=== PATIENT | female | born 1940 | race Caucasian/White ===

== ENCOUNTER 2016-12-12 13:48 | Inpatient (IN) | payer MEDICARE, OTHER ==
[~2016-12-12] VITALS: Ht 170.2 cm; Wt 67.1 kg
[2016-12-12] VITALS (10 sets, daily range): BP systolic 90–109; BP diastolic 44–68; PULSE 61–66; RESP 16–25; O2SAT 96–99
[2016-12-12] MEDS ORDERED: 0.9% Sodium Chloride 1,000 ML ONE ×2 (15:09→18:36)
[2016-12-12] MEDS ORDERED: 0.9% Sodium Chloride 1,000 ML IV SCH (15:22)
[2016-12-12] MEDS ORDERED: Polyethylene Glycol (PEG) 17 Gm Powder PO PRN (15:25)
[2016-12-12] MEDS ORDERED: Ondansetron 2 mg/mL 2 mL Inj IVPUSH PRN ×2 (15:25→20:40)
[2016-12-12] MEDS ORDERED: Alum-Mag Hydrox-Simeth 30 mL Suspension PO PRN (15:25)
[2016-12-12] MEDS ORDERED: Senna-Docusate 8.6-50 mg Tablet PO PRN (15:25)
[2016-12-12] MEDS ORDERED: Heparin 5,000 Unit/mL Inj IVPUSH PRN (15:25)
[2016-12-12] MEDS ORDERED: Heparin 25K Unit/500mL 0.45 NS 25,000 UNIT in IV Premix 1 EACH IV SCH (15:25)
--- NOTE | 2016-12-12 16:11 | PCM.HPMED ---
Subjective Date of Service Dec 12, 2016 Primary Provider: Admitting Physician: Harvinder Paredes MD Primary Care Physician: Michelle Guerra Attending Physician: Harvinder Paredes MD Chief Complaint: "chest pain" History of Present Illness: Ms. Nia Sethi is a 76 year old woman with history of hyperlipidemia and hiatal hernia who presents today as a transfer from [facility] for chest pain. Her dull, intermittent, chest pain started yesterday and worsened in the afternoon, which prompted her to go to the emergency department for evaluation. She initially thought it was heartburn but anti-acids did not provide relief. She could not lay down secondary to discomfort. Originally, the pain was epigastric but then started radiating from the center of her chest into her left upper arm, clavicle, jaw, and shoulder blade. It gets worse with deep breaths. It was relieved with Tylenol but not morphine. She has associated dyspnea on exertion, nausea, vomiting, diaphoresis, dizziness, and headache. She does not have fever, cough, rhinorrhea, diarrhea, constipation, leg pain, or vision changes. Her grandfather had a heart attack in his 60s. At [facility], they admitted her overnight to trend troponin, CK-MB, and EKG. She had persistent chest discomfort overnight. Her EKG around 6:30 AM showed new T wave inversion with less than [address] depression in leads 1, aVL, and also T-wave inversion in V2. There was also less than [address] elevation relative to the VA segment in inferior leads with upright T waves, but no ST elevation relative to TP segment. Her third set of cardiac enzymes at 9 AM showed troponin 1.9 and CK 341 with CK MB relative index 12.9 compared to prior troponin was 0.062 and CK was 60. The EKG at 10:30 AM showed normalization of previous T-wave inversions and ST depressions with minimal ST elevation in lead 3 relative to VA segment, and inferior Q waves. She was given a heparin bolus and started on a heparin drip. She was given a loading dose of clopidogrel and aspirin. Nitroglycerin paste was applied with some relief. Her blood pressure dropped to mid 90s systolic around noon. She was given a 500 ml normal saline bolus and started on NS at 50 ml/hour. Her blood pressure increased to 100s systolic. She was then transferred here. Review of Systems: A comprehensive review of systems was conducted with the patient and found to be negative except as above in the History of Present Illness. Allergies Coded Allergies: erythromycin base (Verified Allergy, Intermediate, Rash, 12/12/16) aminosalicylic acid (Verified Allergy, Unknown, 12/12/16) isoniazid (Verified Allergy, Unknown, 12/12/16) sulfamethoxazole (Verified Allergy, Unknown, 12/12/16) tetracycline (Verified Allergy, Unknown, Rash, 12/12/16) trimethoprim (Verified Allergy, Unknown, 12/12/16) Home Medications Fish oil 1,000 mg PO daily Vitamin D 1,000 unit PO daily Simvastatin 20 mg PO at bedtime Cyclosporine 1 drop ophth Estradiol 0.5 mg PO once daily Calcium acetate 667 mg PO once daily Multivitamin PO once daily PMH Hyperlipidemia Intermittent atrial fibrillation Esophageal reflux with hiatal hernia Erosive gastropathy with chronic inflammation on EGD March 2008, last EGD in August 2016 normal Irritable bowel syndrome with constipation Hyperlipidemia Chronic sinusitis Lumbar herniated disc Postural vertigo Childhood tuberculosis Fibromyalgia Depression Surgical History Right ovary removal 1983 Hysterectomy 1990 Cholecystectomy 1999 Sinus surgery 1999 Family History Mother from lymphoma Father had CVA and CAD Social History Hx Alcohol Use: Yes (1-2 glasses of wine/week) Hx Substance Use: No Hx Tobacco Use: No Smoking Status: Never Smoker Living Arrangement: with Family Exam Vital Signs Vital Sign - Last Date Time Temp Pulse Resp B/P Pulse Ox O2 Delivery O2 Flow Rate FiO2 12/12/16 15:08 63 12/12/16 15:02 36.5 16 109/68 97 Room Air Exam General: Mild distress, diaphoretic, well-developed, well-nourished, appropriately interactive HEENT: Normocephalic, atraumatic. External ears without defect. Pupils equal, round, and reactive to light and accommodation. Anicteric sclerae, moist conjunctivae, and no lid lag. Oropharynx free of erythema and cobble stoning with moist mucosa. Neck: Supple with full range of motion. No jugular venous distension. No bruits. No lymphadenopathy or thyromegaly. Cardiovascular: Regular rate and rhythm with no murmurs, rubs, or gallops appreciated Pulmonary: Clear to auscultation bilaterally with no crackles, wheezes, or rhonchi. Normal respiratory effort with no use of accessory muscles. Abdomen: Bowel tones present. Soft, nontender, nondistended. No hepatosplenomegaly or masses appreciated. Extremities: No clubbing, cyanosis, edema, or lymphadenopathy appreciated. Skin: Normal temperature, turgor, and texture; no rash, ulcers, or subcutaneous nodules appreciated. Neurological: Cranial nerves grossly intact. Normal muscle strength, tone, and bulk. Reflexes, coordination, and sensory function within normal limits. No known gait impairment. Psychiatric: Normal mood and affect. Alert and oriented to person, place, and time. Lab and Diagnostics Cardiac Echo Impressions Echocardiogram Report Interpretation Summary Left ventricular systolic function is mildly reduced. The ejection fraction is estimated to be 45-50%. Compared to the prior exam, left ventricular function is moderately decreased. There is a large sized apical, septal, and inferior wall motion abnormality with hypokinesis to akinesis of the segments. The right ventricle is mildly dilated. Right ventricular systolic function is moderately reduced. There are regional wall motion abnormalities. Right ventricular systolic function has decreased since previous exam. The right ventricular systolic pressure is estimated at 28 mmHg assuming a right atrial pressure of 8 mm Hg. The left atrial size is normal. Right atrial size is normal. There is no significant valvular heart disease. The aortic root is normal size. Reading Physician:PM Assessment & Plan 1. NSTEMI, acute, present on admission. Active. -Troponin and CK-MB elevated at [facility]. EKG at [facility] did not show ST elevation but some ST depression and inferior Q waves. -At [facility], after patient was given nitroglycerin, she became hypotensive. -Echocardiogram shows inferior wall motion abnormality and decreased right ventricular function. -Continue heparin drip -Continue aspirin, clopidogrel, and atorvastatin daily -Metoprolol 12.5 mg every 12 hours. Hold for heart rate less than 45 or first- degree AV block, SBP less than 90 or symptomatically. -Do not give nitroglycerin as it caused hypotension at [facility] and patient has decreased right ventricular function -Cardiology consulted and following. Their time and recommendations are appreciated 2. Hyperlipidemia, chronic. -Lipid panel pending -Hold patient's home simvastatin -Started atorvastatin 40 mg at bedtime 3. Gastroesophageal reflux disease with hiatal hernia, chronic. -Pepcid 20 mg twice per day 4. Irritable bowel syndrome with constipation, chronic. -Bowel regimen as below Other chronic: Postmenopausal -Hold patient's home estrogen Tylenol as needed for pain. Maalox plus as needed for dyspepsia or heartburn Senna and MiraLAX as needed for constipation High risk medications: Heparin drip Pain Evaluation: Adequate Pain Control VTE Prophylaxis: Other (heparin drip) Resuscitation Status: CPR: Attempt Resuscitation Time spent 45 min Attending Statement Patient seen and examined with house staff. Agree with all attached documentation. Sarah Merrill DO Dec 12, 2016 15:44 Harvinder Paredes MD Dec 13, 2016 07:39
[2016-12-12] MEDS: Sodium Chloride LOK Flush 10 mL Syringe IVFLUSH SCH (16:29)
--- NOTE | 2016-12-12 16:58 | DRSVH ---
[facility] [address] [place] [address] Echocardiogram Report Name: GRUPO AMOS Date: Height: 6 7 in Hospital Exam Location: [facility] Weight: 1 42 lb Gender: Female BSA: 1.7 m2 : 1940 Age: 76 yrs BP: 109/6 8 mmHg Reason For Study: CAD Ordering Physician: Favio Benites Performed By: Katlin Reyez Referring Physician: LYLE Guerra Interpretation Summary Left ventricular systolic function is mildly reduced. The ejection fraction is estimated to be 45-50%. Compared to the prior exam, left ventricular function is moderately decreased. There is a large sized apical, septal, and inferior wall motion abnormality with hypokinesis to akinesis of the segments. The right ventricle is mildly dilated. Right ventricular systolic function is moderately reduced. There are regional wall motion abnormalities. Right ventricular systolic function has decreased since previous exam. The right ventricular systolic pressure is estimated at 28 mmHg assuming a right atrial pressure of 8 mm Hg. The left atrial size is normal. Right atrial size is normal. There is no significant valvular heart disease. The aortic root is normal size. Procedure: A two-dimensional transthoracic echocardiogram with color flow and Doppler was performed. The study quality was technically adequate. Comparison is made with the echocardiogram of 03-13-15. The patient was in normal sinus rhythm during the exam. Left Ventricle: The left ventricle is normal in size. There is normal left ventricular wall thickness. Left ventricular systolic function is mildly reduced. The ejection fraction is estimated to be 45-50%. Compared to the prior exam, left ventricular function is moderately decreased. There is a large sized apical, septal, and inferior wall motion abnormality with hypokinesis to akinesis of the segments. Right Ventricle: The right ventricle is mildly dilated. Right ventricular systolic function is moderately reduced. Right ventricular systolic function has decreased since previous exam. There are regional wall motion abnormalities. Atria: The left atrial size is normal. Right atrial size is normal. The interatrial septum is intact with no evidence for an atrial septal defect. Mitral Valve: The mitral valve is normal in structure and function. Aortic Valve: The aortic valve is trileaflet. The aortic valve opens well. No aortic regurgitation is present. Tricuspid Valve: The tricuspid valve leaflets are thin and pliable. There is mild tricuspid regurgitation. The right ventricular systolic pressure is estimated at 28 mmHg assuming a right atrial pressure of 8 mm Hg. Pulmonic Valve: The pulmonic valve is not well visualized. There is trace pulmonic regurgitation. There is no significant valvular heart disease. Great Vessels: The aortic root is normal size. The dimensions of the ascending aorta are normal. The IVC is dilated (diameter is greater than 2.1 cm) yet it collapses greater than 50% with a sniff. This suggests a right atrial pressure of 8 mm Hg. Pericardium/ Pleura There is no pericardial effusion. There is no pleural effusion. I WMSI = 1.50 % Normal = 63 There is a la rge sized apical, septal, and inferior wall motion abnormality w ith hypokinesis to akinesis of t he segments. Segments Size X - Cannot 1 - Normal 2 - 3 - Akinetic 4 - 1-2 small Interpret Hypokinetic Dyskinetic 3-5 moder ate 5 - 6-14 large Aneurysmal 15-16 diffu se MMode/2D Measurements & Calculations LVIDd: 4.1 cmLA dimension: 3.1 cm RA long axis: 4.7 cm Ao root diam LVIDs: 3.0 cmIVC diam: 2.3 cm RA area: 16.3 cm FS: 27.1 % RA vol: 48.3 ml Aortic Jxn: 2.7 cm IVSd: 0.67 cm asc Aorta Diam LVPWd RA : 27.6 ml/m : 0.5cm RVDd major: 5.9 cm Ao Arch Diam (Prox Trans): 2.6 cm EDV(MOD-sp2) LV baig. diameter/BSA LV sys. diameter/BSA RVD1 (basal) (cm/m^2): 2.3 (cm/m^2): 1.7 : 3.4 cm RVD2 (mid) : 3.1 cm Doppler Measurements & Calculations Ao V2 max MV E max edy MV E/A: 1.1 TR max edy : 115.3 cm/sec : 91.5 cm/sec Med Peak E' Edy : 223.2 cm/sec Ao max PG MV A max edy TR max PG : 5.3 mmHg : 82.9 cm/sec E/E' med: 12.3 : 19.9 mmHg Ao mean PG MV P1/2t: 66.8 msec Lat Peak E' Edy PA V2 max : 2.4 mmHg : 59.4 cm/sec E/E' lat: 9.2 PA mean PG E/e' average: 10.7 : 0.73 mmHg MV A dur: 0.12 sec PA Accel Time : 0.19 sec MV dec time MV P1/2t max edy Ao V2 mean PA V2 mean : 0.23 sec : 66.1 cm/sec : 40.3 cm/sec MVA(P1/2t): 3.3 cm2 Ao V2 VTI: 24.3 cm Reading Physician:CORTNEY
--- NOTE | 2016-12-12 18:02 | NUR ---
Admission from [place] elderly female received from [facility] for further cardiac workup. pt arrived on unit at about 1500. pt alert and oriented. sba from gurney to bed. Pt arrived with Heparin infusing at 800unit/hr. telemetry placed. pt states moderate chest pressure pain. MD informed. pt refused morphine r/t nausea side effect. Tylenol given. Cardiology at bedside for eval. call light in reach.
[2016-12-12] MEDS ORDERED: ESTR0.5T ORAL (18:30)
[2016-12-12] MEDS ORDERED: CYCL1DRO BOTH_EYES (18:30)
[2016-12-12] MEDS ORDERED: SIMV10TA4 PO (18:30)
[2016-12-12] MEDS ORDERED: 0.9% Sodium Chloride 1,000 ML IV ONE (18:32)
[2016-12-12] MEDS ORDERED: Ondansetron 2 mg/mL 2 mL Inj IVPUSH ONE (18:35)
[2016-12-12] MEDS ORDERED: Heparin 1,000 Units/500 mL NS Premix IV ONE (18:35)
[2016-12-12] MEDS ORDERED: Heparin 1,000 Unit/mL 10 mL Inj ONE ×3 (18:36→20:43)
[2016-12-12] MEDS ORDERED: Heparin 5,000 Units/500 mL NS Premix IV ONE ×2 (18:36)
[2016-12-12] MEDS ORDERED: Atropine 1 mg/10 mL (Code) Syringe ONE ×2 (18:37→20:42)
[2016-12-12] MEDS ORDERED: Phenylephrine/NS-PF 100 mCg/mL 5 mL Syringe IVPUSH ONE (18:37)
[2016-12-12] MEDS ORDERED: Nitroglycerin 50,000 mcg/250 mL D5W Premix IV ONE (18:44)
[2016-12-12] MEDS ORDERED: ASPI-973 PO (18:47)
[2016-12-12 18:52] LABS: APPEARANCE,URINE CLEAR (CLEAR,HAZY); COLOR,URINE YELLOW (YELLOW); OCCULT BLOOD,URINE NEGATIVE (NEGATIVE); PH,URINE 5.5 (5.0-8.0); UROBILINOGEN,URINE NORMAL (NORMAL)
--- NOTE | 2016-12-12 19:05 | NUR ---
To Sterile Instrument Technician pt ordered for civil laboratory technician by Dr. Benites. pt aware and consented. pre meds given. Heparin stopped when cathlab members arrived per MD orders. technical support director informed of procedure and removal of tele at pt departure from unit. pt departed unit in bed, at about 1850.
--- NOTE | 2016-12-12 19:05 | PCM.CHPCAR ---
Consult Subjective Date of service Dec 12, 2016 Date of admit Dec 12, 2016 at 14:57 Provider Requesting Consult Requesting Provider: Sarah Merrill DO Primary Care Physician Primary Care Provider: Michelle Guerra Chief Complaint chest pressure History of Present Illness This is a very delightful 77 y/o female with prior cardiac history. Risk factors include hyperlipidemia and some history of intermittent afib. She takes simvastatin and baby aspirin for hyperlipidemia and paroxysmal afib. Otherwise she sees Dr. Grijalva for her paroxysmal afib. She started to have CP since 200 pm yesterday. She came into the ER at about 330 pm due to persistent chest discomfort. According to [facility]'s notes, the CP which was constant, variable in intensity, located on left side but with radiation to jaw and left am. Her initial EKG I reviewd and showed no acute ST-T changes. She was admitted to hospitalist service and apparently had waxing and waning CP through out the night and had a repeat EKG around 630 am and showed very subtle changes that would suggest inferoposterior CT with slight ST elevation and Q waves which were all new. There were some reciprocal changes as well in the V1- 3. Dr. Shay discussed the case with me around 830 am and we accepted the patient but we did not have a bed available until this afternoon. When she arrived an echocardiogram was completed and showed RV hypokinesis and inferior and inferoseptal hypokinesis with EF around 45%. There were no other acute changes. I then came up to see the patient and she was still having chest pressure and felt nauseous. At this point, I had not seen the prior EKGs from [facility] and unfortunately, they were not available with the transfer notes. I ordered a STAT EKG and that showed slight ST elevation in the inferior lead and ST depression in the anteroseptal leads. I asked for the EKGs from stat and then was able to review them and realized the very subtle but acute changes noted earlier this morning. At this point, I called the [facility] team and Dr. Amaya (cardiology interventionalist) and they have just arrived and are taking the patient to [facility]. She has been treated with Nitro paste, IV heparin, Plavix 300 mg x1, atorvastatin, and metoprolol since this am but apparently her BP dropped and was given IVFs and her BP responded. Her troponins have steadily increased since admission at . Review of Systems General: Reports: Endurance Energy Fatigue Eyes: Denies: Problem or recent change in eyes Ears, Nose, Mouth & Throat: Denies: Any hearing loss Epistaxis or hoarseness Respiratory: Denies: Orthopnea or PND Significant dyspnea Cardiovascular: Reports: Atrial Fibrillation Chest Discomfort Denies: Syncopal episodes Gastrointestinal: Denies: Recent melena or hematochezia Ulcers or GI blood loss Genitourinary: Denies: Frequency Urinary symptoms Musculoskeletal: Denies: Significant joint or back problems Significant myalgias Neurological: Denies: Any history of stroke/TIA symptoms Any recent focal neuro deficits Psychiatric: Reports: Depression Denies: Anxiety Endocrine: Denies: Heat or cold intolerance Polyuria or Polydipsia Integumentary: Denies: Any change in hair or nails Any rash or skin lesions Hematologic/Immunologic: Denies: Recent history of anemia Unusual bruising or bleeding PMH Past Medical History Hyperlipidemia Intermittent atrial fibrillation Esophageal reflux with hiatal hernia Erosive gastropathy with chronic inflammation on EGD March 2008, last EGD in August 2016 normal Irritable bowel syndrome with constipation Hyperlipidemia Chronic sinusitis Lumbar herniated disc Postural vertigo Childhood tuberculosis Fibromyalgia Depression Past Surgical History Right ovary removal 1983 Hysterectomy 1990 Cholecystectomy 1999 Sinus surgery 1999 Scheduled Aspirin (Aspirin) 81 Mg Tablet 81 MG PO DAILY (Reported) Cyclosporine (Restasis) 1 Each Droperette 1 EACH BOTH_EYES BID (Reported) Estradiol (Estradiol) 0.5 Mg Tablet 0.125 MG ORAL DAILY (Reported) Simvastatin (Simvastatin) 10 Mg Tablet 10 MG PO HS (Reported) Current Inpatient Medications Current Medications Sodium Chloride 10 ml 10 ml LAKIA IVFLUSH Last administered on 12/12/16t 16:29; Admin Dose 10 ML; Start 12/12/16 at 16:30 Sodium Chloride 1,000 ml @ 80 mls/hr [id number] IV; Start 12/12/16 at 15:22 Aspirin 81 mg DAILY PO; Start 12/13/16 at 08:30 Clopidogrel Bisulfate 75 mg DAILY PO; Start 12/13/16 at 08:30 Metoprolol Tartrate 12.5 mg Q12 PO; Start 12/12/16 at 20:30 Atorvastatin Calcium 40 mg HS PO; Start 12/12/16 at 21:00 Famotidine 20 mg Q12 PO; Start 12/12/16 at 20:30; Status UNV Al Hydrox/Mg Hydrox/Simethicone 30 ml Q6H PRN PO; Start 12/12/16 at 15:25 Ondansetron HCl 4-8 mg prn nausea Q4H PRN IVPUSH; Start 12/12/16 at 15:25 Senna 1 tablet BID PRN PO; Start 12/12/16 at 15:25 Polyethylene Glycol 17 gm DAILY PRN PO; Start 12/12/16 at 15:25 Acetaminophen 325 mg Q6H PRN PO Last administered on 12/12/16t 17:52; Admin Dose 325 MG; Start 12/12/16 at 15:25 Nitroglycerin 0.4 mg Q5MIN PRN SL; Start 12/12/16 at 15:25; Stop 12/12/16 at 16 :20; Status DC Morphine Sulfate 1-5 mg prn pain not relie... Q5M PRN IVPUSH; Start 12/12/16 at 15:25 Heparin Sodium (Porcine) Per Protocol for a... PRN PRN IVPUSH; Start 12/12/16 at 15:25 Lorazepam 1 mg STAT PRN IVPUSH; Start 12/12/16 at 18:35; Stop 12/13/16 at 18:36 Nitroglycerin 0.4 mg PRN PRN SL; Start 12/12/16 at 18:35 Sodium Chloride 10 ml LAKIA IVFLUSH; Start 12/13/16 at 00:30 Allergies: Coded Allergies: erythromycin base (Verified Allergy, Intermediate, Rash, 12/12/16) aminosalicylic acid (Verified Allergy, Unknown, 12/12/16) isoniazid (Verified Allergy, Unknown, 12/12/16) sulfamethoxazole (Verified Allergy, Unknown, 12/12/16) tetracycline (Verified Allergy, Unknown, Rash, 12/12/16) trimethoprim (Verified Allergy, Unknown, 12/12/16) Family History Family History Mother from lymphoma Father had CVA and CAD Social History Hx Alcohol Use: NoHx Substance Use: NoHx Tobacco Use: No Smoking Status: Never Smoker Living Arrangement: with Family Exam Vital Signs Vital Sign - Last Date Time Temp Pulse Resp B/P Pulse Ox O2 Delivery O2 Flow Rate FiO2 12/12/16 15:08 63 12/12/16 15:02 36.5 16 109/68 97 Room Air General: Pleasant Cooperative Skin: Warm & dry to touch Head: Normocephalic Eye: EOMS intact No arcus or xanthelasma Neck: No JVD Ears, Nose & Throat: Ears no gross abnormalities Nose no gross abnormalities Chest: Clear auscultation w/o rales/wheeze Cardiac: Normal non-displaced apical impulse Regular rhythm Normal S1 and S2 No S3 or S4 No murmurs Pulses: Pulses full/equal all extremities Abdomen: Soft, non-distended, non-tender No hepatosplenomegaly Lymphatic: No palpable lymphadenopathy Extremities: Warm w/o deformities,erythema noted Neurological: Alert & oriented Psychological: Affect & interaction appropriate Lab and Diagnostics Labs CMP Test 12/12/16 18:25 Labs have been reviewed from and they are stable except for her troponins and CK-MB. Assessment & Plan Problems: (1) AMI inferoposterior wall Plan: She has suffered an inferoposterior CT. She has Q waves and it has been at least 24 hours since her initial presentation. But she still has persistent but very subtle ST elevation and still has ongoing CP. She will need to proceed with coronary angiogram. Her echocardiogram shows inferior and inferoseptal hypokinesis with mildly reduced LVEF. I have explained the risks and benefits of procedure and she wishes to go ahead. Once we have delineated her coronary anatomy then we can decide on further recs. Status: Acute ICD Code: I21.19 (2) Paroxysmal a-fib Plan: Patient will need to start low dose aspirin and Plavix 75 mg once a day. She will start low dose metoprolol for both rate control and CAD. She does admit to recent episodes of increase palpitations. She will benefit from outpatient sr. media manager if we do not see any afib while she is here. Status: Chronic ICD Code: I48.0 (3) Hyperlipidemia Qualifiers: Hyperlipidemia type: Pure hypercholesterolemia Qualified Code: E78.0 - Pure hypercholesterolemia Plan: She will need to change her simvastatin to atorvastatin 40 mg po qhs. She states that her lipids have been well controlled with diet/exercise and low dose simvastatin but given that she has newly diagnosed CAD and now recent CT, she will need to be on a stronger statin and on at least moderate dose of statin. Status: Chronic ICD Code: E78.5 Cardiology Plan: Catherization, Lipid assessment & treatment Pain Evaluation: Adequate Pain Control VTE Prophylaxis: Other (heparin drip) Resuscitation Status: CPR: Attempt Resuscitation Time spent Critical care time 60 minutes. Favio Benites MD Dec 12, 2016 19:05
[2016-12-12] MEDS ORDERED: fentaNYL-PF 50 mCg/mL 2 mL Inj ONE (19:07)
[2016-12-12 19:23] LABS: Magnesium 1.9 mg/dL (1.6-2.6)
[2016-12-12 19:40] LABS: TROPONIN T 0.814 ug/L (0.0-0.011)
[2016-12-12] MEDS ORDERED: 0.9% Sodium Chloride 250 ML IV PRN (20:39)
[2016-12-12] MEDS ORDERED: 0.9% Sodium Chloride 1,000 ML IV PRN (20:39)
[2016-12-12] MEDS ORDERED: Atropine 1 mg/10 mL (Code) Syringe IVPUSH PRN (20:40)
[2016-12-12] MEDS ORDERED: HYDROcodone-APAP 5-325 mg Tablet PO PRN (20:40)
--- NOTE | 2016-12-12 20:56 | PCM.CVCATH ---
Cardiac Cath Report Date of Service Dec 12, 2016 Primary Indication Acute inferoposterior myocardial infarction. Procedure 1. Left heart catheterization 2. Selective coronary angiogram 3. Right femoral angiogram Procedure Details The patient was brought into the catheterization laboratory. The patient was nothing by mouth since midnight. The patient was prepped and sterilized in the appropriate fashion. Local anesthetic was given to the right groin region with lidocaine 1%. A percutaneous stick to the right groin region with an 18-gauge Seldinger needle was attempted but unsuccessful. A micropuncture CAD was used and was successful. A 6 Burundian sheath was inserted into the right femoral artery. A 6 Burundian FL 4 diagnostic catheter was advanced and engaged into the left main. The left coronary angiography was performed in multiple views. The catheter was exchanged over the wire for a 6 Burundian FR4 diagnostic catheter. The catheter was engaged in the right coronary ostium and the right coronary angiography was performed in multiple views. The catheter was removed over the wire and exchanged for 6 Burundian angle pigtail catheter. LV hemodynamics were recorded. LV pullback was performed. All catheters were removed. The right femoral angiogram was performed to evaluate for closure device. Case was handed over to Dr. Amaya for urgent PCI. Hemostasis was obtained with starclose. The patient was transferred back to special observation unit for post procedural monitoring. There were no immediate complications. Total fluoroscopy time: 9.6 minutes Total fluoroscopy dosage: 744 mGy Estimated blood loss: 20 mL Total contrast: 130 mL Findings 1. Hemodynamics: The left ventricular systolic pressure was estimated at 122 mmHg and the left ventricular end-diastolic pressure was estimated at 18 mmHg. There is no significant gradient during pullback. Aortic systemic pressure was 120/51 mmHg. 2. Selective coronary angiography: A. Left main: There artery has no evidence of significant disease. It bifurcates into the left anterior and left circumflex arteries. B. Left anterior descending artery: There are mild luminal irregularities.. However there is evidence of significant collaterals to the distal and mid RCA. C. Left circumflex artery: Nondominant artery and there is no evidence of significant disease. D. Right coronary artery: There is a 100% occlusion in the proximal RCA. 3. Right femoral angiogram: There is no evidence of significant disease. Summary 1. 100% stenosis in the proximal RCA. Recommendations The patient proceeded with urgent percutaneous intervention of the right coronary artery by Dr. Amaya. Please see details of his report. Otherwise there was successful percutaneous intervention with 2 drug-eluting stents to the mid RCA. Subsequent angiographic results are excellent. copies to: Matilda Grijalva MD, Oscar J MD Dec 12, 2016 20:56
[2016-12-12 22:48] LABS: TROPONIN T 2.66 ug/L (0.0-0.011)
--- NOTE | 2016-12-12 23:28 | CS94 ---
[address] [address] DIAGNOSTIC CARDIAC CATHETERIZATION PATIENT: GRUPO AMOS : [birth year] MR#: [id number] ADMIT: 12/12/2016 JOB ID: [id number] PROCEDURE NOTE--CARDIAC CATHETERIZATION LABORATORY: DATE OF PROCEDURE: Monday, December 12, 2016. PROPERTY MANAGEMENT SPECIALIST: Sanket Amaya MD. PROCEDURE PERFORMED: 1..Percutaneous Coronary Intervention (PCI): PILO(Drug Eluting Stent) of occluded proximal RCA--Xience 2.5 x 18 mm stent; and Distal overlapping Xience stent 2.5 x 12 mm; and post dilated to 2.5 mm at high pressure. CLINICAL DETAILS: This 76-year-old woman presented to the Catheterization Laboratory for diagnostic coronary angiogram and anticipated PCI for acute coronary syndrome (ACS) after she was admitted with chest pain; elevated troponin; and ECG with subtle intermittent changes including inferior ST straightening, and lateral ST depression, and right precordial ST depression. Diagnostic angiogram had been completed, and showed single-vessel coronary disease with occluded proximal RCA culprit including left to right collaterals to the distal RCA. PCI of occluded proximal RCA was recommended. PROCEDURAL DETAILS: I discussed the case with Dr. Benites after he completed the diagnostic coronary angiogram. See separate report. PCI of occluded culprit of proximal RCA is planned. I spoke briefly with the patient. She had been previously consented. A 10 cm 6-Moroccan sheath was in place in the right common femoral artery. A side-arm sheath angiogram showed adequate access for later closure device. PCI OF PROXIMAL RCA: The RCA was engaged for Intervention with a 6-Moroccan JR-4 guide which provided adequate support. For Intervention, the patient was treated with ASA 324 mg chewed, and also bolus Heparin IV to achieve a therapeutic ACT; and 300 mg Plavix p.o. was given additional to a 300 mg loading dose that she had been given previously. Aliquots of NTG IC were used during the procedure as needed. PREDILATATION: The occlusion was crossed without difficulty with a BMW wire--0.14 inches x 190 cm--which was placed distally in the right coronary artery. The artery was opened with an inflation with a Trek balloon--2.5 x 15 mm--inflated to 6 atmospheres. The artery was open; and a residual subtotal 95% focal lesion is noted at the site of occlusion in the proximal RCA. STENT: The subtotal lesion was treated with a Xience PILO (Drug-Eluting Stent)--2.5 x 18 mm--placed across the lesion and deployed at 14 atmospheres. There is an excellent angiographic result; however, there is a step-down at the distal edge of the stent which appears related to pre-existing plaquing distal to the stent in the RCA. No dissection was evident. I elected, however, to cover this area with a second stent. The second Xience PILO --2.5 x 12 mm--is deployed overlapping the distal edge of the first stent at 14 atmospheres. POSTDILATATION: The stented segment was post dilated with a Noncompliant Trek NC balloon--2.5 x 12 mm--inflated twice within the stented segment to 18 atmospheres. Completion angiogram show an excellent angiographic result with no residual lesion; no evident angiographic complication; and YANG-3 flow compared to the initial YANG-0 flow. Procedure without difficulty. Patient tolerated procedure well. No complication. Arterial hemostasis was obtained without difficulty with a StarClose device. The patient had become chest pain free after the artery was opened; and she was transferred in stable and improved condition from the Catheterization Laboratory back to the PCU Unit for ongoing care including by the Hospitalist team, and Cardiology. I discussed the procedure, findings, and ongoing management considerations with the patient and with Cardiology. CONCLUSIONS: 1. PCI--Xience PILO of occluded proximal right coronary artery--Xience 2.5 x 18 mm; and distal overlapping Xience Stent 2.5 x 12 mm. 2. Acute Coronary Syndrome. 3. CAD (Coronary Artery Disease)--Single-Vessel CAD of proximal right coronary artery. RECOMMENDATIONS: 1. ECASA--Indefinitely. 2. Plavix--Plan one year if well tolerated with ongoing Cardiology follow- up. I discussed with the patient not to miss Plavix for any reason without immediate Cardiology consultation. 3. Ongoing Cardiology follow-up including guideline directed optimal medical therapy, including Aspirin, Plavix, statin, beta-jessica, and consideration of DANNIE inhibitor; as well as guideline directed management of CAD risk factors; and Cardiac Rehab Program. [facility]
[2016-12-13] VITALS (11 sets, daily range): BP systolic 88–122; BP diastolic 50–70; PULSE 61–70; RESP 16–22; O2SAT 96–99
[2016-12-13] MEDS: Sodium Chloride LOK Flush 10 mL Syringe IVFLUSH SCH ×8 (00:30→23:30)
[2016-12-13 04:04] LABS: BASOPHILS % (AUTO) 0.1 % (0-3); EOSINOPHILS % (AUTO) 0.1 % (0-5); MONOCYTES % (AUTO) 7.6 % (4-12); Mean Corpuscular Hemoglobin 29.5 pg (27.0-35.0); Mean Corpuscular Volume 88.9 fL (81-100); NEUTROPHILS % (AUTO) 80.4 % (40-74); Platelet Count 175 bil/L (150-400)
--- NOTE | 2016-12-13 05:15 | NUR ---
Post cath recovery Received pt from micro lab analyst approximately 2100. Report received at bedside by micro lab analyst team. Pt aware of care plan and educated on the importance of lying flat and not moving the right leg. Informed the pt that we will help her to roll from side to side. Pt A&Ox3 VSS and right groin site soft non-tender and no hematoma noted at this time. Q15 checks, L91zgio checks completed. After flat laying for 2 hours the head of the bed was raised to 30 degrees. After 30mins a groin check was completed, Pt found to have medium size hematoma and oozing was noted on dressing. Hand held pressure applied for 15 mins and hematoma noted to decrease. Pt remained flat and on bedrest for the remainder of the shift. No further hematoma noted. Distal pulses remained strong. VSS and Tele SR
--- NOTE | 2016-12-13 07:45 | NUR ---
Post Cath-Lab Pt had to remain flat on bedrest throughout the shift r/t right groin site feeling firm to touch after HOB was initially raised. Pt had manual pressure applied to groin-site two times during the shift to help reduce the firmness of the groin-site. Pt has not c/o pain or tenderness in the groin-site. Pt's VSS. Pt's HOB was again raised approximately 0630 and groin-site has remained soft and non-tender.
--- NOTE | 2016-12-13 13:34 | PCM.PNCARD ---
Subjective Date of service Dec 13, 2016 History of Present Illness This is a very pleasant 76 y/o lady with hx of paroxysmal a-fib (on ASA), hyperlipidemia, who on 12/12/2018 was transferred from [facility] with elevated trops in the setting of sub-acute inferoposterior ID per EKG and ongoing chest pain and underwent cardiac cath which showed 100% occlusion in the proximal RCA with significant collaterals to the distal and mid RCA; no significant CAD in other arteries. The patient proceeded with urgent percutaneous intervention with PILO-s placements to proximal and distal RCA. Subjective: The patient tells me that severe chest pain she had in the middle of her chest radiating to her left arm and under her left breast is gone; she still has slight chest pressure/discomfort in lower substernal area which is not new. She has been having it on and off for several years and it is getting aggravated with eating and not with physical activity. She saw GI specialist in the past and is planning on seeing again. She has been ambulating in the room. Denies having any chest pain or chest pressure or SOB/LICONA; denies orthopnea or PND or having palpitations; denies having pain in right groin area; Right groin area is slightly bruised, no hematoma, no bleeding, nontender with palpation, no bruits with auscultation Exam Vital Signs Vital Sign - Last Date Time Temp Pulse Resp B/P Pulse Ox O2 Delivery O2 Flow Rate FiO2 12/13/16 12:54 36.8 61 20 111/70 97 Room Air Intake and Output 12/12/16 12/12/16 12/13/16 Cumulative From/Thru 15:00 23:00 07:00 12/12/16 17:27 - 12/13/16 05:00 Intake Total 346 ml 200 ml 546 ml Output Total 150 ml 300 ml 450 ml Balance 196 ml -100 ml 96 ml Intake Oral 200 ml 200 ml IV Total 346 ml 346 ml Output Urine Total 150 ml 300 ml 450 ml # Bowel Movements 0 0 Additional Information: General: no ACD ENT: mucous membranes moist, eyes unicteric Neck: supple, no thyromegaly Pulmo: normal breathing sounds bilaterally, no crackles, no wheezing Cardio: RRR, normal S1&S2, no murmur appreciated Abdomen: nontender with palpation Extremities: no LE edema Neuro: A&O x3, no gross abnormalities. Lab and Diagnostics Result Diagram: 12/13/16 0325 12/13/16324 12-lead ECG On telemetry sinus rhythm with heart rate between 50s to 70s, today at 8:49 AM had a short run of atrial tachycardia with heart rate in the 130s, otherwise no other dysrhythmia Assessment & Plan Assessment This is a very pleasant 76 y/o lady with hx of paroxysmal a-fib (on ASA), hyperlipidemia, who on 12/12/2018 was transferred from [facility] with elevated trops in the setting of sub-acute inferoposterior ID per EKG and ongoing chest pain and underwent diagnostic cardiac cath which showed 100% occlusion in the proximal RCA with significant collaterals to the distal and mid RCA; no significant CAD in other arteries. The patient proceeded with urgent percutaneous intervention with PILO-s placements to proximal and distal RCA. - Sub-acute inferoposterior ID - s/p PILO-s placements to proximal and distal RCA. - Ischemic cardiomyopathy - Per ECHO from 12/12/2016 LV EF 45-50%, Compared to the prior exam, left ventricular function is moderately decreased. There is a large sized apical, septal, and inferior wall motion abnormality with hypokinesis to akinesis of the segments. Has normal right side pressures; no significant valvular heart disease. She was hypotensive and currently BP improved as 111/70. For this reason will not start her on Lisinopril currently. - Continue ASA 81 mg daily, Plaxix 75 mg daily, metoprolol tartrate 12.5 mg twice a day, atorvastatin 40 mg daily. - Hyperlipidemia. - Paroxysmal atrial fibrillation - is on ASA and currently is in sinus rhythm The case was discussed with senior stock plan administrator Dr. Benites who agreed with assessment and Plan. Problems: (1) AMI inferoposterior wall Status: Acute ICD Code: I21.19 (2) Paroxysmal a-fib Status: Chronic ICD Code: I48.0 (3) Hyperlipidemia Qualifiers: Hyperlipidemia type: Pure hypercholesterolemia Qualified Code: E78.0 - Pure hypercholesterolemia Status: Chronic ICD Code: E78.5 Cardiology Plan: Catherization, Lipid assessment & treatment Pain Evaluation: Adequate Pain Control VTE Prophylaxis: Other (heparin drip) Resuscitation Status: CPR: Attempt Resuscitation Time spent 30 minutes Attending Statement I saw and evaluated the patient. I agree with the findings and the plan of care as documented in the mid-level practitioners note. Edward Silva PA-C Dec 13, 2016 13:34 Favio Benites MD Dec 13, 2016 20:41
--- NOTE | 2016-12-13 14:04 | PCM.PNMED ---
Subjective Date of Service Dec 13, 2016 Subjective Overnight: Patient completed cardiac catheterization procedure, and had 2 stents placed in the RCA. No acute events overnight. Today: She denies chest pain and shortness of breath, but states she "can't take a deep breath." She denies pain on inspiration. She reports headache and low back pain. Denies fevers, chills, nausea, vomiting. No other complaints. Exam Vital Signs Vital Sign - Last Date Time Temp Pulse Resp B/P Pulse Ox O2 Delivery O2 Flow Rate FiO2 12/13/16 12:54 36.8 61 20 111/70 97 Room Air Intake and Output 12/12/16 12/12/16 12/13/16 Cumulative From/Thru 15:00 23:00 07:00 12/12/16 17:27 - 12/13/16 05:00 Intake Total 346 ml 200 ml 546 ml Output Total 150 ml 300 ml 450 ml Balance 196 ml -100 ml 96 ml Intake Oral 200 ml 200 ml IV Total 346 ml 346 ml Output Urine Total 150 ml 300 ml 450 ml # Bowel Movements 0 0 Exam General: Alert, Oriented X3, Cooperative, No Acute Distress Head: Normocephalic, atraumatic. External ears normal. Eyes: PERRLA, EOMI. Anicteric sclerae. Mouth: Mouth Normal, Mucous Membranes Moist/Cody Neck: Neck supple with full range of motion. Chest & Lungs: Clear to auscultation bilaterally with no crackles, wheezes, or rhonchi. Cardiovascular: Regular Rate/Rhythm, Normal S1, Normal S2, No Murmurs/Rubs/ Gallops Abdomen: Non-tender, Non-distended, No masses, Normoactive bowel tones, Soft Musculoskeletal: Normal Range of Motion Extremities: No cyanosis/clubbing/edema bilaterally Neurological: Grossly Neurologically Intact, Normal Speech Lab and Diagnostics Result Diagram: 12/13/16 0325 12/13/16 032 Cardiac Echo Impressions Echocardiogram Report Interpretation Summary Left ventricular systolic function is mildly reduced. The ejection fraction is estimated to be 45-50%. Compared to the prior exam, left ventricular function is moderately decreased. There is a large sized apical, septal, and inferior wall motion abnormality with hypokinesis to akinesis of the segments. The right ventricle is mildly dilated. Right ventricular systolic function is moderately reduced. There are regional wall motion abnormalities. Right ventricular systolic function has decreased since previous exam. The right ventricular systolic pressure is estimated at 28 mmHg assuming a right atrial pressure of 8 mm Hg. The left atrial size is normal. Right atrial size is normal. There is no significant valvular heart disease. The aortic root is normal size. Reading Physician:PM Assessment & Plan Nia Sethi is a 76 year old female with a history of hyperlipidemia who presented with chest pain radiating to the left arm and jaw. Admitted for NSTEMI. 1. NSTEMI, acute, present on admission. Active. -Troponin and CK-MB elevated at [facility]. EKG at [facility] did not show ST elevation but some ST depression and inferior Q waves. During catheterization, she was found to have 100% occlusion of the RCA, now s/p 2 drug -eluting stents. -Echocardiogram shows inferior wall motion abnormality and decreased right ventricular function. -Continue heparin drip -Continue aspirin, clopidogrel, and atorvastatin daily -Metoprolol 12.5 mg q12. Hold for HR<45 or SBP < 90 -Avoid nitroglycerin as it caused hypotension -Cardiology consulted and following. Their time and recommendations are appreciated 2. Hyperlipidemia, chronic. -Lipid panel normal. -Hold patient's home simvastatin -Started atorvastatin 40 mg at bedtime 3. Gastroesophageal reflux disease with hiatal hernia, chronic. -Pepcid 20 mg twice per day 4. Irritable bowel syndrome with constipation, chronic. -Bowel regimen as below Other chronic: Postmenopausal -Hold patient's home estrogen Tylenol as needed for pain. Maalox plus as needed for dyspepsia or heartburn Senna and MiraLAX as needed for constipation High risk medications: Heparin drip Disposition: Will monitor overnight, likely discharge tomorrow. VTE Prophylaxis: Other (heparin drip) Resuscitation Status: CPR: Attempt Resuscitation Time spent 30 min Attending Statement Patient seen and examined with housestaff. Agree with all attached documentation. Darryl Green Dec 13, 2016 14:04 Harvinder Paredes MD Dec 14, 2016 10:12
--- NOTE | 2016-12-13 16:15 | NUR ---
Social Work: Assessment. D&A: See initial assessment. SOLUTION DESIGN ENGINEER reviewed EMR, which states pr is at [facility] with non-stemi. Pt primary insurance is [employer] with a Douguo supp.; PCP is Michelle James, PAC Pt readmit score has not yet been assessed. SOLUTION DESIGN ENGINEER met with pt at bedside and explained SOLUTION DESIGN ENGINEER role. Pt reports that she lives in a condo with her ; there are 12 internal steps and no external steps. Pt reports that she is "[place]" [place] and shannon snot use any DME to ambulate. She drives and does not utilize any community services. Pt does not endorse any hx of SNF admission or H.H. services. Pt reports that her will provide transport at d/c. P: Pt likely to d/c home with via POV. SOLUTION DESIGN ENGINEER will follow for d.c planning and additional needs. BLAYNE Duncan Addendum: 12/13/16 at 1618 by [employer] BARRERA Amended: Links added.
--- NOTE | 2016-12-13 19:30 | NUR ---
Groin site/Lower back pain/Ambulation Pt's groin site assessed with NOC RN at beginning of shift and appeared to be improving per NOC RN and Pt. Surrounding tissues soft to palpation, distal pulse intact, no new drainage on band aid. Pt reporting lower back pain and some Hx of back pain, given PRN tylenol, Pt reported the pain to resolve. Pt assisted to ambulate a lap around unit. Pt tolerated well, denied dizziness, and denied SOB during ambulation. Pt's gait steady/strong and Pt ambulated on unit independently later in the shift without issue.
[2016-12-14] VITALS: BP 112/70; PULSE 73; RESP 16; O2SAT 97
[2016-12-14 02:53] VITALS: BP 98/61; PULSE 67; RESP 20; O2SAT 94
[2016-12-14 03:32] LABS: Mean Corpuscular Hemoglobin 29.7 pg (27.0-35.0); Mean Corpuscular Volume 89.8 fL (81-100)
[2016-12-14 04:09] LABS: TROPONIN T 1.88 ug/L (0.0-0.011)
--- NOTE | 2016-12-14 05:42 | NUR ---
Groin/Activity Pt's groin site remains soft and nontender but is bruised over a large surface area near the groin insertion site. At the beginning of the shift the pt had a new dressing of gauze and bio-occlusive on the site. Pt has used call light when needing to get up and ambulates with a steady gait without c/o weakness, dizziness, or SOB.
[2016-12-14] MEDS: Sodium Chloride LOK Flush 10 mL Syringe IVFLUSH SCH ×2 (08:30→09:44)
[2016-12-14 09:41] VITALS: BP 98/65; PULSE 65; RESP 16; O2SAT 100
[2016-12-14 11:11] VITALS: PULSE 60
[2016-12-14 12:30] VITALS: BP 110/58; PULSE 62; RESP 20; O2SAT 99
--- NOTE | 2016-12-14 13:00 | DRSVH ---
PROCEDURE: US DUPLEX DOPPLER UNILATERAL LEG ARTERIES, RIGHT INDICATIONS: pseudoaneurysm or fistula TECHNIQUE: Color and pulse Doppler interrogation was performed of the right lower extremity arterial system, wit h image documentation. COMPARISON: None. FINDINGS: Limited sonography of the right groin demonstrates no abnormalities. No fluid collection or masses are seen. Normal appearance of the right common femoral artery and vein as is demonstrated with spectral and color-flow Doppler. Impression: No right groin pseudoaneurysm. Dictated by: Alberto AZEVEDO Interpreted: Mirella Heller MD on 12/14/2016 at 12:58 Transcribed by: KAEL on 12/14/2016 at 12:59 Approved by: Mirella Heller M.D. on 12/14/2016 at 16:47
[2016-12-14] MEDS ORDERED: CLOP75TA28 PO (13:58)
[2016-12-14] MEDS ORDERED: ATOR40TA69 PO (13:58)
[2016-12-14] MEDS ORDERED: CAPT12.52 PO (13:58)
[2016-12-14] MEDS ORDERED: METO25TA6 PO (13:58)
--- NOTE | 2016-12-14 14:13 | PCM.DIMED ---
Sarah Merrill DO 12/14/16 1413: Discharge Instructions Date of Service Dec 14, 2016 Dates of Hospitalization Dec 12, 2016 at 14:57 Discharge Diagnosis Discharge Diagnosis 1. Myocardial Infarction 2. Hyperlipidemia 3. Gastroesophageal reflux disease 4. Irritable bowel syndrome with constipation Diet Heart Healthy Activity Limited until seen by PCP Call your provider Fever or Chills, Shortness of breath, Bleeding, Chest pain, Weakness (unilateral ) Patient Instructions For your heart, here are the medications for you to take each day: clopidogrel 75 mg once daily, aspirin 81 mg once daily, captopril 6.25 mg twice per day, metoprolol tartrate 12.5 mg twice per day, and atorvastatin 40 mg once daily at bedtime. Stop taking simvastatin because you have been switched to atorvastatin, as listed above. Follow up with your primary care provider in 1 week and blood work (CBC and BMP ) should be checked at that visit as well. Follow up with cardiology in 2-3 weeks. You should start cardiac rehab in 2 weeks at [facility]. Follow-up Provider: Michelle Guerra Follow-up with PCP in: 1 week Provider: Favio Benites MD Follow-up in: 2 weeks (2-3 weeks) Cardiac Rehab: 2 weeks (at [facility]) Harvinder Paredes MD 12/14/16 1539: Discharge Instructions Attending's Statement Patient seen and examined with housestaff. Agree with all attached documentation. Sarah Merrill DO Dec 14, 2016 14:13 Harvinder Paredes MD Dec 14, 2016 15:39
--- NOTE | 2016-12-14 14:39 | PROG NOTE ---
[address] [address] PROGRESS NOTE PATIENT: GRUPO AMOS : 1940 MR#: [id number] ADMIT: 12/12/2016 JOB ID: [id number] DATE: 12/14/2016 SUBJECTIVE: Patient lying on bed. She is not having any active chest pain or shortness of breath or PND, orthopnea, palpitation, dizziness, or syncope. She has some tenderness in the right groin. She is not actively bleeding. She has a lot of questions, which I answered today. In summary, this 77-year-old, female, who has a history of paroxysmal AFib (decided not to be on anticoagulation), hyperlipidemia, was transferred from [facility] to our facility on December 12, 2016, as she presented with chest pain and ruled in for acute coronary syndrome with abnormal troponin. Dr. Benites evaluated in our facility and patient found to have ST elevation inferior posterior [place] as well as Q-waves. She was taken to the clinical laboratory manager on December 12, 2016, which revealed occluded right coronary artery in the proximal portion, without any significant disease of LAD, circumflex, or left main. There were collaterals from the LAD providing to the distal and mid RCA. LVEDP was about 18 mmHg. Subsequently, the patient underwent two drug-coated stent placements to the RCA by Dr. Amaya. The proximal RCA received 2.5/18 mm Xience, followed by another 2.5/12 mm Xience stent. The patient had echocardiogram on December 12, 2016. At that time, LV ejection fraction 45% to 50% with wall motion abnormalities in the RCA territory, moderately reduced right ventricular function. Pulmonary artery systolic pressure about 28 mmHg without any significant valvular pathology. OBJECTIVE: Blood pressure 98/65, heart rate 65, respiratory rate 16, oxygen saturation room air 100%. HEENT: No significant jaundice. Neck: No apparent JVP or carotid bruits. Chest: No obvious crepitation or rhonchi. CVS: S1, S2 normal. No S3, no S4. No significant murmur. Abdomen: No obvious pulsatile mass, no hepato splenomegaly. Right groin examination revealed diffuse ecchymosis. I do not appreciate clinically any obvious pulsatile mass or bruit. Extremities: No significant pedal edema. APPLIED BIOLOGY PROFESSOR: No gross motor or sensory deficit. Vascular: No evidence of critical limb ischemia. Telemetry is sinus rhythm without any significant sustained arrhythmias. LABORATORIES: Sodium 143, potassium 4.1, BUN 11, creatinine 0.7. In our hospital, peak troponin T was 2.66, then came to 1.88, and total CPK 1188. WBC 7.2, hemoglobin 11.1, platelets 161. ASSESSMENT/PLAN: Acute myocardial infarction with inferior posterior wall myocardial infarction, status post left heart catheterization, which revealed occluded proximal right coronary artery with collaterals from the left anterior descending to distal right coronary artery and mid right coronary artery, history of paroxysmal atrial fibrillation, hyperlipidemia, ischemic heart disease with ischemic cardiomyopathy with left ventricular ejection fraction about 45% to 50%. Clinically, patient appears compensated. At present, she is not in heart failure. She has a right groin diffuse ecchymosis without any obvious pulsatile mass or bruit. Her blood pressure is slightly controlled. Ideally, I would like to put her on DANNIE inhibitor and spironolactone on top of tolerable dose of beta jessica, dual anti-platelet therapy, and high-intensity statin. However, because of tight blood pressure, I am not adding spironolactone at this point of time. I will use short-acting DANNIE inhibitor like captopril 6.25 mg twice a day and see how she does. Will get right groin ultrasound duplex examination to make sure there is no significant pathology like pseudoaneurysm or AV fistula. Will let her walk. She will need close watch on electrolytes. If ultrasound does not show any significant groin abnormality and patient is able to ambulate without any significant cardiovascular symptoms, then she can be discharged home. Will recommend cardiac rehab at [place] in two weeks. Down the road, if blood pressure is stable, consider adding spironolactone as well. Discussed the plan with the patient. She agrees and concurs. She is 76-year-old female. Now she has vascular disease. Based on CHADS2-VASc score, will recommend anticoagulation for stroke prevention. However, at present, patient is not interested. She has multiple questions which I answered today. Discussed the plan with the hospitalist team. Total time spent today, about 15 minutes. KYRIE
--- NOTE | 2016-12-14 15:18 | NUR ---
Social Work Note: Discharge Data& Assessment: EMR reviewed. Per pt is medically ready for discharge. SW met with pt and pt at bedside to confirm discharge plan and assess for any unmet needs. Nia Sethi is a 76 year old female admitted on 12/12/2016 for NSTEMI. Per pt is medically improved and ready for discharge. Pt is independent in her room and is ambulating at baseline. Pt confirmed her is able to transport her home today. Pt and pt deny any other needs. No other discharge needs identified. Plan: Per pt is medically ready to discharge home via POV. Pt and pt deny any other needs. No other discharge needs identified. BLAYNE Newman
--- NOTE | 2016-12-14 15:25 | NUR ---
Social Work Note: Discharge Data& Assessment: Per pt is medically ready to discharge home via POV. Nia Sethi is a 76 year old female admitted on 12/12/2016 for NON STEMI. SW met with pt and pt at bedside to confirm discharge plan and assess for any other unmet needs.Per pt is medically improved and ready to discharge. Pt is independent in her room. Pt confirmed that her is able to transport her home today. Pt and pt deny any other needs. No other discharge needs identified. Plan: Per pt is medically ready to discharge home via POV. Pt and pt deny any other needs. No other discharge needs identified. BLAYNE Newman
--- NOTE | 2016-12-14 15:50 | NUR ---
Discharge Patient ambulated off unit with RN in a stable condition. Right groin site checked multiple times throughout shift, unchanged-- significant bruising but no oozing noted, small unchanged firm area. New medications of Plavix, Atorvastatin, Captopril and Metoprolol discussed with next due doses -- patient verbalized understanding. Discussed stopping simvastatin and continuing other home medications per MD orders -- verbalized understanding. Follow up with cardiology, PCP and cardiac rehab discussed -- verbalized understanding. Tele removed, IV DC'd intact, all personal belongings with patient.
--- NOTE | 2016-12-14 21:28 | PCM.DC.MED ---
Discharge Summary Date of Service Dec 14, 2016 Dates of Hospitalization Date of Hospital Admission Dec 12, 2016 at 14:57 Date of Discharge: Dec 14, 2016 Providers: Admitting Physician: Harvinder Paredes MD Primary Care Physician: Michelle Guerra Attending Physician: Harvinder Paredes MD Diagnosis at Time of Discharge Diagnosis at Time of Discharge 1. Myocardial Infarction (Inferior STEMI) 2. Hyperlipidemia 3. Gastroesophageal reflux disease 4. Irritable bowel syndrome with constipation Procedures XRay, CTs & MRIs PROCEDURE: US DUPLEX DOPPLER UNILATERAL LEG ARTERIES, RIGHT Impression: No right groin pseudoaneurysm. Approved by: Mirella Heller M.D. on 12/14/2016 at 16:47 Cardiac Echo Impression Echocardiogram Report Interpretation Summary Left ventricular systolic function is mildly reduced. The ejection fraction is estimated to be 45-50%. Compared to the prior exam, left ventricular function is moderately decreased. There is a large sized apical, septal, and inferior wall motion abnormality with hypokinesis to akinesis of the segments. The right ventricle is mildly dilated. Right ventricular systolic function is moderately reduced. There are regional wall motion abnormalities. Right ventricular systolic function has decreased since previous exam. The right ventricular systolic pressure is estimated at 28 mmHg assuming a right atrial pressure of 8 mm Hg. The left atrial size is normal. Right atrial size is normal. There is no significant valvular heart disease. The aortic root is normal size. Reading Physician:PM Brief History From the history and physical performed by Dr. Sarah Merrill on 12/12/2016: Ms. Nia Sethi is a 76 year old woman with history of hyperlipidemia and hiatal hernia who presents today as a transfer from [facility] for chest pain. Her dull, intermittent, chest pain started yesterday and worsened in the afternoon, which prompted her to go to the emergency department for evaluation. She initially thought it was heartburn but anti-acids did not provide relief. She could not lay down secondary to discomfort. Originally, the pain was epigastric but then started radiating from the center of her chest into her left upper arm, clavicle, jaw, and shoulder blade. It gets worse with deep breaths. It was relieved with Tylenol but not morphine. She has associated dyspnea on exertion, nausea, vomiting, diaphoresis, dizziness, and headache. She does not have fever, cough, rhinorrhea, diarrhea, constipation, leg pain, or vision changes. Her grandfather had a heart attack in his 60s. At [facility], they admitted her overnight to trend troponin, CK-MB, and EKG. She had persistent chest discomfort overnight. Her EKG around 6:30 AM showed new T wave inversion with less than [address] depression in leads 1, aVL, and also T-wave inversion in V2. There was also less than [address] elevation relative to the SD segment in inferior leads with upright T waves, but no ST elevation relative to TP segment. Her third set of cardiac enzymes at 9 AM showed troponin 1.9 and CK 341 with CK MB relative index 12.9 compared to prior troponin was 0.062 and CK was 60. The EKG at 10:30 AM showed normalization of previous T-wave inversions and ST depressions with minimal ST elevation in lead 3 relative to SD segment, and inferior Q waves. She was given a heparin bolus and started on a heparin drip. She was given a loading dose of clopidogrel and aspirin. Nitroglycerin paste was applied with some relief. Her blood pressure dropped to mid 90s systolic around noon. She was given a 500 ml normal saline bolus and started on NS at 50 ml/hour. Her blood pressure increased to 100s systolic. She was then transferred here. Hospital Course Nia Sethi is a 76 year old female with a history of hyperlipidemia who presented with chest pain radiating to the left arm and jaw. Admitted for NSTEMI. 1. Myocardial infarction of inferior posterior wall, acute, present on admission. Active. -Troponin and CK-MB elevated at [facility]. EKG at [facility] did not show ST elevation but some ST depression and inferior Q waves. During catheterization, she was found to have 100% occlusion of the RCA, now s/p 2 drug -eluting stents. -Echocardiogram shows inferior wall motion abnormality and decreased right ventricular function. -Continued aspirin, clopidogrel, and atorvastatin daily -Metoprolol 12.5 mg twice per day and captopril 6.25 mg twice per day. -Cardiology consulted and following. Their time and recommendations were appreciated. -Patient needs a follow up CBC and BMP at her follow up appointment with her primary care provider. HgbA1c was 5.3%. -Considered adding spironolactone but patient's blood pressure cannot tolerate an additional anti-hypertensive at this time 2. Hyperlipidemia, chronic. -Lipid panel normal. -Stopped patient's home simvastatin -Started atorvastatin 40 mg at bedtime 3. Gastroesophageal reflux disease with hiatal hernia, chronic. -Pepcid 20 mg twice per day was given 4. Irritable bowel syndrome with constipation, chronic. Exam Vital Signs (Last) Date Time Temp Pulse Resp B/P Pulse Ox O2 Delivery O2 Flow Rate FiO2 12/14/16 12:30 36.7 62 20 110/58 99 Room Air Exam General: No acute distress, well-developed, well-nourished, appropriately interactive HEENT: Normocephalic, atraumatic. External ears without defect. Pupils equal, round, and reactive to light and accommodation. Anicteric sclerae, moist conjunctivae, and no lid lag. Oropharynx free of erythema and cobble stoning with moist mucosa. Neck: Supple with full range of motion. No jugular venous distension. No bruits. No lymphadenopathy or thyromegaly. Cardiovascular: Regular rate and rhythm with no murmurs, rubs, or gallops appreciated Pulmonary: Clear to auscultation bilaterally with no crackles, wheezes, or rhonchi. Normal respiratory effort with no use of accessory muscles. Abdomen: Bowel tones present. Soft, nontender, nondistended. No hepatosplenomegaly or masses appreciated. Extremities: Right femoral access site with small, palpable hematoma with ecchymosis extending onto mons pubis. No clubbing, cyanosis, edema, or lymphadenopathy appreciated. Skin: Normal temperature, turgor, and texture; no rash, ulcers, or subcutaneous nodules appreciated. Neurological: Cranial nerves grossly intact. Normal muscle strength, tone, and bulk. Reflexes, coordination, and sensory function within normal limits. No known gait impairment. Psychiatric: Normal mood and affect. Alert and oriented to person, place, and time. Test 12/12/16 17:00 12/12/16 18:25 12/12/16 22:01 12/13/16 03:25 Urine Color Yellow (YELLOW) Urine Appearance Clear (CLEAR,HAZY) Urine pH 5.5 (5.0-8.0) Urine Specific [place] 1.029 (1.003-1.035) Urine Protein Negativemg/dL (NEG,TRACE) Urine Glucose (UA) Negativemg/dL (NEGATIVE) Urine Ketones 15mg/dL (NEGATIVE) Urine Occult Blood Negative (NEGATIVE) Urine Nitrite Negative (NEGATIVE) Urine Bilirubin Negative (NEGATIVE) Urine Urobilinogen Normalmg/dL (NORMAL) Urine Leukocyte Esterase Negative (NEGATIVE) Urine RBC 0-2/hpf (0-2) Urine WBC 0-5/hpf (0-5) Urine Epithelial Cells Many/hpf (NONE-MOD) Urine Crystals None seen (NONE SEEN) Urine Bacteria None/hpf (NONE-FEW) Urine Hyaline Casts None/lpf (NONE) Urine Granular Casts None seen (NONE SEEN) Urine Waxy Casts None seen (NONE SEEN) Urine Red Blood Cell Casts None seen (NONE SEEN) Urine White Blood Cell Casts None seen (NONE SEEN) Urine Mucus None seen (None Seen) Urine Trichomonas None seen (NONE SEEN) Urine Yeast None (NONE SEEN) Urinalysis Comment None Urine Culture Reflexed Not indicated Magnesium Level 1.9mg/dL (1.6-2.6) Thyroid Stimulating Hormone (TSH) 0.963uIU/mL (0.450-4.500) Activated Partial Thromboplast Time 240.0sec (22.8-33.0) Total Creatine Kinase 1188U/L (21-215) Creatine Kinase MB 182.4ng/mL (0.0-5.3) Creatine Kinase MB % 15.4% (0.0-5.0) Neutrophils (%) (Auto) 80.4% (40-74) Lymphocytes (%) (Auto) 11.7% (14-46) Monocytes (%) (Auto) 7.6% (4-12) Eosinophils (%) (Auto) 0.1% (0-5) Basophils (%) (Auto) 0.1% (0-3) Triglycerides Level 100mg/dL (0-149) Cholesterol Level 144mg/dL (100-199) LDL Cholesterol, Calculated 54.000mg/dL (0-99) VLDL Cholesterol 20.000mg/dL HDL Cholesterol 70mg/dL (>39) Cholesterol/HDL Ratio 2.06 (0.0-4.4) Test 12/14/16 02:45 White Blood Count 7.2th/mm3 (3.8-10.1) Red Blood Count 3.74mil/mm3 (3.90-5.20) Hemoglobin 11.1g/dL (12.0-15.6) Hematocrit 33.6% (35.0-46.0) Mean Corpuscular Volume 89.8fL (81-100) Mean Corpuscular Hemoglobin 29.7pg (27.0-35.0) Mean Corpuscular Hemoglobin Concent 33.0% (32.0-37.0) Red Cell Distribution Width 13.4% (12.3-15.4) Platelet Count 161bil/L (150-400) Sodium Level 143mEq/L (134-144) Potassium Level 4.1mEq/L (3.5-5.2) Chloride Level 108mEq/L (97-108) Carbon Dioxide Level 26mmol/L (18-29) Blood Urea Nitrogen 11mg/dL (8-27) Creatinine 0.70mg/dL (0.57-1.00) Estimat Glomerular Filtration Rate 117mL/min (>59) Glucose Level 102mg/dL (60-99) Calcium Level 8.2mg/dL (8.5-10.1) Troponin T 1.88ug/L (0.0-0.011) Discharge Medications Discharge Medications Aspirin (Aspirin) 81 Mg Tablet 81 MG PO DAILY (Reported) Atorvastatin Calcium (Atorvastatin Calcium) 40 Mg Tablet 40 MG PO HS Prescribed by: SARAH MERRILL DO Captopril (Captopril) 12.5 Mg Tablet 6.25 MG PO BID Prescribed by: SARAH MERRILL DO Clopidogrel (Clopidogrel) 75 Mg Tablet 75 MG PO DAILY Prescribed by: SARAH MERRILL DO Cyclosporine (Restasis) 1 Each Droperette 1 EACH BOTH_EYES BID (Reported) Estradiol (Estradiol) 0.5 Mg Tablet 0.125 MG ORAL DAILY (Reported) Metoprolol Tartrate (Metoprolol Tartrate) 25 Mg Tablet 12.5 MG PO Q12 Prescribed by: SARAH MERRILL DO Followup Plan Discharge Diet: Heart Healthy Discharge Activity: Limited until seen by PCP Patient Instructions For your heart, here are the medications for you to take each day: clopidogrel 75 mg once daily, aspirin 81 mg once daily, captopril 6.25 mg twice per day, metoprolol tartrate 12.5 mg twice per day, and atorvastatin 40 mg once daily at bedtime. Stop taking simvastatin because you have been switched to atorvastatin, as listed above. Follow up with your primary care provider in 1 week and blood work (CBC and BMP ) should be checked at that visit as well. Follow up with cardiology in 2-3 weeks. You should start cardiac rehab in 2 weeks at [facility]. Follow-up Provider: Michelle Guerra Follow-up with PCP in: 1 week Provider: Favio Benites MD Follow-up in: 2 weeks (2-3 weeks) Cardiac Rehab: 2 weeks (at [facility]) Time spent 40 minutes Attending Statement Patient seen and examined with house staff. Agree with all attached documentation. copies to: Michelle Guerra Marissa L DO Dec 14, 2016 14:14 Harvinder Paredes MD Dec 23, 2016 07:36
== END 2016-12-14 15:30 | disposition home or self-care (01) | DRG 247 ==
LOC: PCC 14:57
PROVIDERS: ADMIT Hospitalist; ATTEND Hospitalist
PROC: 027035Z Dilation of Coronary Artery, One Artery with Two Drug-eluting Intraluminal Devices, Percutaneous Approach (ICD-10-PCS; principal; 2016-12-12)
PROC: 4A023N7 Measurement of Cardiac Sampling and Pressure, Left Heart, Percutaneous Approach (ICD-10-PCS; 2016-12-12)
PROC: B2111ZZ Fluoroscopy of Multiple Coronary Arteries using Low Osmolar Contrast (ICD-10-PCS; 2016-12-12)
DX: I21.11 ST elevation (STEMI) myocardial infarction involving right coronary artery (principal); E78.5 Hyperlipidemia, unspecified; K58.1 Irritable bowel syndrome with constipation; K21.9 Gastro-esophageal reflux disease without esophagitis; K44.9 Diaphragmatic hernia without obstruction or gangrene; I48.0 Paroxysmal atrial fibrillation; I25.10 Atherosclerotic heart disease of native coronary artery without angina pectoris; Z79.82 Long term (current) use of aspirin; I25.5 Ischemic cardiomyopathy

== ENCOUNTER 2016-12-17 12:31 | Emergency (ER) | payer MEDICARE, OTHER ==
[~2016-12-17] VITALS: Ht 171.4 cm; Wt 65.0 kg
[~2016-12-17 12:31] MED LIST: ASPI-973 PO; ATOR40TA69 PO; CAPT12.52 PO; CLOP75TA28 PO; CYCL1DRO BOTH_EYES; ESTR0.5T ORAL; METO25TA6 PO
[2016-12-17 12:34] VITALS: BP 127/67; PULSE 55; RESP 16; O2SAT 100
[2016-12-17 13:09] VITALS: BP 109/44; PULSE 52; RESP 20; O2SAT 100
[2016-12-17 13:29] LABS: BASOPHILS % (AUTO) 0.3 % (0-3); EOSINOPHILS % (AUTO) 2.1 % (0-5); MONOCYTES % (AUTO) 6.9 % (4-12); Mean Corpuscular Hemoglobin 29.8 pg (27.0-35.0); NEUTROPHILS % (AUTO) 64.5 % (40-74); Platelet Count 202 bil/L (150-400)
[2016-12-17 14:10] LABS: TROPONIN T 1.93 ug/L (0.0-0.011)
--- NOTE | 2016-12-17 14:12 | DRSVH ---
PROCEDURE: X-RAY CHEST ONE VIEW, PORTABLE ([id number]) INDICATIONS: chest pain TECHNIQUE: One view of the chest was acquired. COMPARISON: [facility], , CHEST 1 VIEW, 12/11/2016, 16:00. [facility], CR, CHEST 2VW, 06/13/2013, 12:10. FINDINGS: Surgical changes and devices: None. Lungs and pleura: Normal appearance of the right basilar streaky opacity. Mediastinum: Mediastinal contours appear normal. Heart size is normal. Bones and chest wall: No suspicious bony lesions. Overlying soft tissues appear unremarkable. IMPRESSION: Minimal right basilar streaky opacity. Developing airspace disease such as pneumonia and/ or atelectasis cannot be excluded. Dictated by: Mirella Heller M.D. on 12/17/2016 at 13:51 Approved by: Mirella Heller M.D. on 12/17/2016 at 14:10
--- NOTE | 2016-12-17 14:22 | ED.REPORT ---
HPI-Chest Pain 40 and Over Date of Service Dec 17, 2016 ED Provider: Saundra Murphy MD Patient is a 76 year old female w/ a hx of IN, hyperlipidemia, GERD and hiatal hernia who presents to the ED due to substernal chest pain that started late yesterday evening. She had a right coronary artery stent placed on 12/12/16 at [facility] and was discharged three days ago. She was recovering well until yesterday afternoon. She is currently on Plavix. She denies edema, coughing, and has no issues with heart failure. Nursing Notes Stated Complaint: CHEST PAIN Chief Complaint: Chest Pain Nursing Notes Reviewed: Yes Allergies: Coded Allergies: erythromycin base (Verified Allergy, Intermediate, Rash, 12/17/16) aminosalicylic acid (Verified Allergy, Unknown, 12/17/16) isoniazid (Verified Allergy, Unknown, 12/17/16) sulfamethoxazole (Verified Allergy, Unknown, 12/17/16) tetracycline (Verified Allergy, Unknown, Rash, 12/17/16) trimethoprim (Verified Allergy, Unknown, 12/17/16) Scheduled Aspirin (Aspirin) 81 Mg Tablet 81 MG PO DAILY Atorvastatin Calcium (Atorvastatin Calcium) 40 Mg Tablet 40 MG PO HS Captopril (Captopril) 12.5 Mg Tablet 6.25 MG PO BID Clopidogrel (Clopidogrel) 75 Mg Tablet 75 MG PO DAILY Cyclosporine (Restasis) 1 Each Droperette 1 EACH BOTH_EYES BID Estradiol (Estradiol) 0.5 Mg Tablet 0.125 MG ORAL DAILY Metoprolol Tartrate (Metoprolol Tartrate) 25 Mg Tablet 12.5 MG PO Q12 General Time Seen by MD: 12:41 Chief Complaint Chest pain Hx Obtained From: Patient Sudden in Onset?: Yes Onset Occurred: Just prior to arrival Symptom Duration: Since onset Location: : Substernal Radiation: : Does not radiate Severity: Current: No pain currently Recent Healthcare: Recent doctor visit, Recent hospitalization Similar Sx Previous: Yes Past Medical History Past Medical History IN hiatal hernia Reports: GERD, Hyperlipidemia Past Surgical History heart cath and stent placed November 2016 Reports: Cholecystectomy, Hysterectomy Smoking History Never Smoker Social History Other Social History: Ambulatory Status Independent Review of Systems Respiratory: Denies: Non-productive cough Cardiovascular: Reports: Chest pain Musculoskeletal: Denies: Extremity swelling Complete sys rev & neg: except as marked. Physical Exam Initial Vital Signs Vital Signs (First) Date Time Temp Pulse Resp B/P Pulse Ox O2 Delivery O2 Flow Rate FiO2 12/17/16 12:34 36.6 55 16 127/67 100 Room Air Initial VS: Reviewed Head / Eyes: Atraumatic, Normocephalic, PERRL ENT: Mucous membranes moist, Conjunctiva normal, No scleral icterus Neck: Supple, Non-tender, Full range of motion Extremities: Vascular intact, Neuro intact, No swelling, No tenderness Skin: Warm, Dry, No cyanosis Neurologic: Alert, Oriented, Nonfocal Psychiatric: Mood/affect normal, Behavior normal, Normal thought content General/Constitutional: Awake, Alert, Cooperative, Not toxic appearing Respiratory / Chest: Atraumatic, Breath sounds NL, Breath sounds = bilat, No respiratory distress, No rales, No rhonchi, No wheezing, No retractions no crackles Cardiovascular: Heart rate NL, Regular rhythm, Heart sounds NL, No gallop, No murmurs, No rubs no jugular venous distension Abdomen: Atraumatic, Soft, No guarding, No rebound, BS normoactive Interpretation & Diagnostics Lab Results Interpretation Result Diagram: 12/17/16 1300 12/17/16 1300 Test 12/17/16 13:00 12/17/16 15:25 12/17/16 16:00 White Blood Count 6.5th/mm3 (3.8-10.1) Red Blood Count 4.26mil/mm3 (3.90-5.20) Hemoglobin 12.7g/dL (12.0-15.6) Hematocrit 37.9% (35.0-46.0) Mean Corpuscular Volume 89.0fL (81-100) Mean Corpuscular Hemoglobin 29.8pg (27.0-35.0) Mean Corpuscular Hemoglobin Concent 33.5% (32.0-37.0) Red Cell Distribution Width 12.9% (12.3-15.4) Platelet Count 202bil/L (150-400) Neutrophils (%) (Auto) 64.5% (40-74) Lymphocytes (%) (Auto) 26.0% (14-46) Monocytes (%) (Auto) 6.9% (4-12) Eosinophils (%) (Auto) 2.1% (0-5) Basophils (%) (Auto) 0.3% (0-3) Sodium Level 139mEq/L (134-144) Potassium Level 3.8mEq/L (3.5-5.2) Chloride Level 102mEq/L (97-108) Carbon Dioxide Level 25mmol/L (18-29) Blood Urea Nitrogen 11mg/dL (8-27) Creatinine 0.70mg/dL (0.57-1.00) Estimat Glomerular Filtration Rate 117mL/min (>59) Glucose Level 93mg/dL (60-99) Calcium Level 8.8mg/dL (8.5-10.1) Magnesium Level 2.0mg/dL (1.6-2.6) Total Bilirubin 0.6mg/dL (0.0-1.2) Aspartate Amino Transf (AST/SGOT) 44U/L (0-50) Alanine Aminotransferase (ALT/SGPT) 36U/L (0-32) Alkaline Phosphatase 59U/L (25-165) Pro-B-Type Natriuretic Peptide 2127pg/mL (0-738) Total Protein 6.5g/dL (6.4-8.4) Albumin 4.1g/dL (3.4-5.0) Hold Nicholas Top Tube Received (Received) Total Creatine Kinase 229U/L (21-215) Creatine Kinase MB 3.0ng/mL (0.0-5.3) Creatine Kinase MB % 1.3% (0.0-5.0) Troponin T 1.86ug/L (0.0-0.011) Hold Urine Received (Received) ECG Interpretation ECG Interpretation: New Q-wave III since stent placement 12/04/16 Time: 12:49 Interpreted by: ED physician Normal ECG Interpretation: Normal sinus rhythm (53), No acute ischemic changes X-Ray Chest Interpretation Chest Xray Interpretation: IMPRESSION: Minimal right basilar streaky opacity. Developing airspace disease such as pneumonia and/or atelectasis cannot be excluded. Dictated by: Mirella Heller M.D. on 12/17/2016 at 13:51 Approved by: Mirella Heller M.D. on 12/17/2016 at 14:10 View: Portable Interpretation / Wet Read by: Interpret - Radiologist Re-Eval/Medical Decision Time of Eval: 14:55 Re-Evaluation/Progress Note: EKG does not show anything impressive. Troponin levels are slightly increased today. Plan to consult with ultrasonic welding machine operator. Counseled Regarding: Diagnosis, Lab results, Need for follow-up, When/why to return to ED Discharge & Departure Primary Impression: Non-cardiac chest pain Ruled Out: NSTEMI (non-ST elevated myocardial infarction) Disposition: Home Discharge Condition All VS Reviewed: Yes Condition: Stable Additional Instructions: Today your cardiac enzyme studies initially and repeated do NOT suggest that your pain is from your heart I DO suspect this is from your stomach/hiatal herina - based on exam and the fact that you have stopped all of your acid blockers I am go to suggest that you restart PANTOPROZOLE - it is OK to take this with all the other meds you have this at home, restart it. Maalox or tums is OK for tonight to help with the pain tonight Keep your scheduled for 12/30 with your ultrasonic welding machine operator and your PCP next week. Come back if you are not better Referrals: Michelle Guerra (PCP) Scribe Attestation Portion of this note were transcribed by Len Lewis. I, Dr. Murphy, personally performed the history, physical exam, and medical decision-making: I reviewed and confirmed the accuracy for the information in the transcribed note. Signed by: roseline Harrison, 12/17/16 1500 copies to: Matilda Grijalva MD; Michelle Guerra Shawna L MD Dec 17, 2016 14:22 LEN LEWIS Dec 17, 2016 15:01
[2016-12-17 15:03] VITALS: BP 112/43; PULSE 55; RESP 17; O2SAT 98
[2016-12-17 15:55] VITALS: BP 99/60; PULSE 54; RESP 18; O2SAT 100
[2016-12-17 16:01] LABS: TROPONIN T 1.86 ug/L (0.0-0.011)
[2016-12-17 16:52] VITALS: BP 111/60; PULSE 59; RESP 15; O2SAT 100
--- OUTSIDE RECORDS SUMMARY | 2016-12-21 10:07 | XMS | Continuity of Care Document ---
Author Author [facility] Address Unknown Phone Unavailable Care Team Providers Care Publicity Agent Name Role Phone Michelle Guerra Unavailable Insurance Providers Payer Name Policy Number Subscriber Name Relationship MEDICARE [id number] [employer] [facility] [id number] [employer] Advance Directives Directive Response Recorded Date/Time Do You Have an Advanced Directive for Health Care? Y 12/11/16 10:30pm If Yes:+ Requested from family 12/11/16 10:30pm Chief Complaint and Reason for Visit Reason for Visit CHEST PAIN Problems Active Medical Problems Problem Onset Date Recorded Date Status Chest pain Unknown 12/11/16 Active Medications Current Home Medications Medication Dose Units Route Directions Days/Qty Instructions Start Date CALCIUM ACETATE (CALPHRON) 667 MG TABLET 667 MG ORAL Every day CHOLECALCIFEROL (VITAMIN D3) (VITAMIN D) 1,000 UNIT TABLET 1,000 UNIT ORAL Every day CYCLOSPORINE (RESTASIS) 1 EACH [address]OPERETTE 1 DROP OPHTHALMIC ESTRADIOL 0.5 MG TABLET 0.5 MG ORAL Every day 1/2 QDAY MULTIVITAMIN 1 EACH TABLET 1 TAB ORAL Every day [place]-3/Dha/Epa/Fish Oil (Fish Oil) 1,000 MG CAPSULE 1,000 MG ORAL Simvastatin 20 MG TABLET 20 MG ORAL At bedtime 1/2 QDAY Past Home Medications Medication Directions Ordered Status Meclizine Hcl (Antivert) (Unknown Strength) Tablet Tablet, Unknown Dose Unknown Discontinued Meclizine Hcl 25 Mg Tablet Tablet, 25 Mg Oral Q8H PRN as needed for DIZZINESS 01/19/14 Discontinued Nitrofurantoin Monohyd/M-Cryst (Macrobid) 100 Mg Capsule Capsule, 100 Mg Oral Twice daily with meals 10/24/16 Discontinued Phenazopyridine Hcl (Pyridium) 200 Mg Tablet Tablet, 200 Mg Oral 3 times daily 10/24/16 Discontinued Social History Problem Response Recorded Date Street drug use? N 12/11/16 Alcohol Use? Y 12/11/16 Support sources:+ Family, local 12/11/16 Able to participate in own care? Y 12/11/16 Have help at home after discharge? Y 12/11/16 Prior to this admission, the patient lived:+ WITH FAMILY 12/11/16 Query Response Start Date Stop Date Smoking status:+ Never smoker Hospital Discharge Instructions : TRANSFER TO [facility] WHEN BED AVAILABLE Plan of Care Discharge Date 12/12/16 Disposition [facility] () Instructions/Education Provided [facility] ED Instruction Forms Provided Nursing info - Transfer Prescriptions See Medications Section Care Plan and Goals See Discharge Instructions section Functional Status Query Response Date Recorded Mobility:+ Minimum assist, 1 person December 12, 2016 1:00pm Allergies, Adverse Reactions, Alerts Allergen Type Severity Reaction Status Last Updated Tetracyclines Allergy Unknown RASH, HIVES Active 12/11/16 erythromycin base Allergy Intermediate rash, N/V Active 12/11/16 sulfamethoxazole Allergy Unknown RASH HIVES Active 12/11/16 isoniazid Allergy Unknown Active 06/14/15 aminosalicylic acid Allergy Unknown Active 12/11/16 trimethoprim Allergy Unknown RASH HIVES Active 12/11/16 Immunizations Name Date Given Type Pneumococcal vaccine?*+ Yes Historical Date:* 09/2016 Historical Influenza? (Seasonal)+ Yes Historical Date:* Historical Lst Tetanus:* UNKNOWN Historical Vital Signs Vital Reading Collection Date/Time Result Blood Pressure 12/12/16 1:00pm 92/46 Blood Pressure Source 12/12/16 12:49pm LUE LYING Patient Temperature 12/12/16 1:00pm 97.8 Temperature Source 12/12/16 1:00pm ORAL Respiratory Rate 12/12/16 1:00pm 16 Bedside Oxygen Availability 12/12/16 1:00pm ROOM AIR Pulse Rate 12/12/16 1:00pm 58 Pulse Location 12/12/16 1:00pm MONITOR Bedside Pulse Oximetry 12/12/16 8:15am 99 Height 12/12/16 9:30am 5 ft 7.5 in 171.45 cm Weight 12/12/16 9:30am 143 lb 65 kg Body Mass Index 12/12/16 9:30am 22.1 kg/m2 Results Laboratory Results Test Name Result Units Flags Reference Collection Date/Time Result Date/ Time Comments Troponin I 1.920 ng/mL *H 0.01-0.034 12/12/16 9:01am 12/12/16 9:45am RESULT CALLED PERSON OR PLACE CONTACTED: [facility] WAS THE RESULT READ-BACK? YES DATE: 12/12/16 TIME: 0945 Reference Ranges: Upper Reference Limit 0.034 ng/mL AMI Diagnostic Cutoff 0.120 ng/mL Total Creatine Kinase 341 U/L # H 30-135 12/12/16 9:01am 12/12/16 9:32am Creatine Kinase MB 44.10 ng/mL *H 0-2.37 12/12/16 9:01am 12/12/16 9:46am Creatine Kinase MB Relative Index 12.9 % *H 12/12/16 9:01am 12/12/16 9: 46am IF TOTAL CK IS GREATER THAN 250 U/L & CK-MB IS GREATER THAN 5 NG/ML, NORMAL CK-MB RELATIVE % INDEX=1.5-5.0 Alkaline Phosphatase 62 U/L 38-126 12/11/16 3:56pm 12/11/16 4:13pm Total Bilirubin 0.5 mg/dL 0.2-1.3 12/11/16 3:56pm 12/11/16 4:13pm Blood Urea Nitrogen 14.0 mg/dL 712/11/16 3:56pm 12/11/16 4:13pm Creatinine 0.70 mg/dL 0.52-1.04 12/11/16 3:56pm 12/11/16 4:13pm Estimated GFR (MDRD) >60.0 mL/min >60 12/11/16 3:56pm 12/11/16 4:13pm ESTIMATED GFR: TO ESTIMATE THE GLOMERULAR FILTRATION RATE FOR - AMERICANS, MULTIPLY THE RESULTS PROVIDED BY 1.21. ESTIMATED GFR (EGFR) VALUES <60 ml/min/1.73m2 ARE INDICATIVE OF CHRONIC KIDNEY DISEASE. BUN/Creatinine Ratio 20.0 5.8-27.8 12/11/16 3:56pm 12/11/16 4:13pm Calcium Level 9.9 mg/dL 8.4-10.2 12/11/16 3:56pm 12/11/16 4:13pm Glucose Level 104 mg/dL 83-110 12/11/16 3:56pm 12/11/16 4:13pm Total Protein 7.6 g/dL 6.3-8.2 12/11/16 3:56pm 12/11/16 4:13pm Albumin 4.8 g/dL 3.5-5.0 12/11/16 3:56pm 12/11/16 4:13pm Globulin 2.8 g/dL 1.7-4.1 12/11/16 3:56pm 12/11/16 4:13pm Albumin/Globulin Ratio 1.7 1-2.8 12/11/16 3:56pm 12/11/16 4:13pm Aspartate Amino Transf (AST/SGOT) 35 IU/L 14-36 12/11/16 3:56pm 4:13pm Alanine Aminotransferase (ALT/SGPT) 21 IU/L 9-52 12/11/16 3:56pm 4:13pm Sodium Level 143 mmol/L 137-145 12/11/16 3:56pm 12/11/16 4:13pm Potassium Level 3.9 mmol/L 3.5-5.1 12/11/16 3:56pm 12/11/16 4:13pm Chloride Level 102.0 mmol/L 98-107 12/11/16 3:56pm 12/11/16 4:13pm Carbon Dioxide Level 28.0 mmol/L 22-30 12/11/16 3:56pm 12/11/16 4:13pm White Blood Count 7.5 X10^3/uL # 4.5-11 12/11/16 3:56pm 12/11/16 4:05pm Red Blood Count 5.05 X10^6/uL 4.0-5.2 12/11/16 3:56pm 12/11/16 4:05pm Hemoglobin 14.9 G/DL 12-16 12/11/16 3:56pm 12/11/16 4:05pm Hematocrit 44.6 % 36-46 12/11/16 3:56pm 12/11/16 4:05pm Mean Corpuscular Volume 88.3 FL 80-100 12/11/16 3:56pm 12/11/16 4:05pm Mean Corpuscular Hemoglobin 29.5 PG 26-34 12/11/16 3:56pm 12/11/16 4: 05pm Mean Corpuscular Hemoglobin Concent 33.4 % 31-37 12/11/16 3:56pm 4:05pm Red Cell Distribution Width 13.2 % 11.6-14.8 12/11/16 3:56pm 12/11/16 4 :05pm Platelet Count 205 X10^3/uL 150-400 12/11/16 3:56pm 12/11/16 4:05pm Neutrophils % 63.9 % 50-75 12/11/16 3:56pm 12/11/16 4:05pm Absolute Neutrophil 4800 /uL 2356-7751 12/11/16 3:56pm 12/11/16 4:05pm Lymphocytes % 27.8 % 25-40 12/11/16 3:56pm 12/11/16 4:05pm Monocytes % 5.4 % 3-14 12/11/16 3:56pm 12/11/16 4:05pm Eosinophils % 2.4 % 2-4 12/11/16 3:56pm 12/11/16 4:05pm Basophils % 0.5 % 0-2 12/11/16 3:56pm 12/11/16 4:05pm Prothrombin Time 10.7 SECONDS 10.1-12.7 12/11/16 3:56pm 12/11/16 4: 05pm International Ratio (Anticoag Ther) 0.9 0.9-1.3 12/11/16 3:56pm 12/11 4:05pm INR THERAPUTIC RANGES: PREVENTION AND TREATMENT OF THROMBOEMBOLISM ASSOCIATED WITH: AF, PE, VT, POST-AK, BIPROSTHETIC HEART VALVES 2.0-3.0 MECHANICAL HEART VALVES 2.5-3.5 Activated Partial Thromboplast Time 35 # 26.4-36.2 12/11/16 3:56pm 4:05pm Adjunctive to Coronary Thrombosis Heparin (0.1 - 0.3 UI/mL)=46.5 - 63.2 seconds Heparin (0.3 - 0.7 UI/mL)=63.2 - 102.2 seconds. Procedures No Known History of Procedures. Encounters Encounter Location Arrival/Admit Date Discharge/Depart Date Attending Provider Discharged Inpatient [facility] 12/11/16 3:37pm 12/12/16 2:00pm Harvinder Shay MD Registered Clinical [facility] 10/24/16 2:12pm DI Roca Registered Outpatient [facility] 10/24/16 10:29am Encounter Diagnosis Onset Date Chest pain
== END 2016-12-17 16:58 | disposition home or self-care (01) ==
LOC: SED 12:31
DX: R07.89 Other chest pain (principal); I25.2 Old myocardial infarction; E78.5 Hyperlipidemia, unspecified; K21.9 Gastro-esophageal reflux disease without esophagitis; Z95.818 Presence of other cardiac implants and grafts; Z87.19 Personal history of other diseases of the digestive system; Z79.02 Long term (current) use of antithrombotics/antiplatelets; Z79.82 Long term (current) use of aspirin; Z88.1 Allergy status to other antibiotic agents; Z88.2 Allergy status to sulfonamides

== ENCOUNTER 2017-07-08 12:20 | Observation (INO) | payer MEDICARE, OTHER ==
[~2017-07-08] VITALS: Ht 170.2 cm; Wt 64.0 kg
[2017-07-08 12:22] VITALS: BP 126/65; PULSE 55; RESP 16; O2SAT 100
--- NOTE | 2017-07-08 12:33 | ED.REPORT ---
HPI-Chest Pain 40 and Over Date of Service Jul 08, 2017 ED Provider: Ryan Bocanegra MD Patient is a 76 year old female with a hx of STEMI 7 mo ago on Plavix and ASA who presents to the ED from Dr. Stallings office to be admitted for a stress test. Pt complains of chest tightness onset this morning, as well as lightheadedness and dizziness onset about 5 days ago. She denies extremity pain , nausea, vomiting, blurred vision, difficulty speaking or swallowing, numbness , weakness, tingling, rectal bleeding, or any other symptoms. She reports this feels similar but not as severe as when she had her heart attack. Pt has not taken her ASA yet today. Nursing Notes Stated Complaint: HEART ISSUE Chief Complaint: Chest Pain Nursing Notes Reviewed: Yes Allergies: Coded Allergies: erythromycin base (Verified Allergy, Intermediate, Rash, 07/08/17) aminosalicylic acid (Verified Allergy, Unknown, 07/08/17) isoniazid (Verified Allergy, Unknown, 07/08/17) sulfamethoxazole (Verified Allergy, Unknown, 07/08/17) tetracycline (Verified Allergy, Unknown, Rash, 07/08/17) trimethoprim (Verified Allergy, Unknown, 07/08/17) Scheduled Aspirin (Aspirin) 81 Mg Tablet 81 MG PO HS Atorvastatin Calcium (Atorvastatin Calcium) 40 Mg Tablet 40 MG PO HS Clopidogrel (Clopidogrel) 75 Mg Tablet 75 MG PO DAILY Cyclosporine (Restasis) 1 Each Droperette 1 EACH BOTH_EYES BID Estradiol (Estradiol) 0.5 Mg Tablet 0.125 MG ORAL DAILY Losartan Potassium (Losartan Potassium) 25 Mg Tablet 12.5 MG PO HS Metoprolol Tartrate (Metoprolol Tartrate) 25 Mg Tablet 25 MG PO HS Pantoprazole DR (Pantoprazole DR) 40 Mg Tablet.dr 40 MG PO DAILY Sertraline HCl (Sertraline) 25 Mg Tablet 25 MG PO HS General Time Seen by MD: 12:29 Chief Complaint Chest pain (tightness ) Hx Obtained From: Patient Arrived By: Walk-in Sudden in Onset?: Yes Onset Occurred: 5 - 8 hours ago Symptom Duration: Since onset Recent Healthcare: Recent doctor visit Similar Sx Previous: Yes Risk Factors )( CAD Risk Stratification Hyperlipidemia Hypertension Known CAD Risk factors N/A )( TAD Risk Stratification No Risk factors reviewed )( PE Risk Stratification No , No Previous DVT, No Previous PE Risk factors reviewed Past Medical History Past Medical History MD - STEMI Nov 2016 hiatal hernia thrombophlebitis TB- treated arthritis depression anxiety CAD Reports: GERD, Hyperlipidemia Past Surgical History heart cath and stent placed November 2016 Sinus surg tubal adhesions Reports: Cholecystectomy, Hysterectomy Smoking History Never Smoker Social History Alcohol Use: 1-3 per week Other Social History: Ambulatory Status Independent Review of Systems Review of Systems Note: -tingling Cardiovascular: Reports: Chest pain (tightness ) GI: Denies: Dysphagia, Hematochezia, Nausea, Vomiting Musculoskeletal: Denies: Extremity pain Neurologic: Reports: Dizziness, Lightheaded, Denies: Numbness, Slurred speech, Weakness Complete sys rev & neg: except as marked. Eyes: Denies: Blurred bilateral Physical Exam Initial Vital Signs Vital Signs (First) Date Time Temp Pulse Resp B/P Pulse Ox O2 Delivery O2 Flow Rate FiO2 07/08/17 12:22 36.6 55 16 126/65 100 Room Air Initial VS: Reviewed, Vital signs normal Head / Eyes: Atraumatic, Normocephalic Neck: Full range of motion Skin: Warm, Dry Neurologic: Alert, Oriented, Nonfocal Psychiatric: Mood/affect normal, Behavior normal, Normal thought content General/Constitutional: Awake, Alert, No acute distress Respiratory / Chest: Atraumatic, Breath sounds NL, Breath sounds = bilat, No respiratory distress Cardiovascular: Heart rate NL, Regular rhythm, Heart sounds NL, No murmurs Abdomen: Atraumatic, Soft, Non-tender Interpretation & Diagnostics Lab Results Interpretation Result Diagram: 07/08/17 1308 07/08/17 1308 Test 07/08/17 13:08 07/08/17 14:35 White Blood Count 6.9th/mm3 (3.8-10.1) Red Blood Count 4.44mil/mm3 (3.90-5.20) Hemoglobin 13.2g/dL (12.0-15.6) Hematocrit 39.2% (35.0-46.0) Mean Corpuscular Volume 88.3fL (81-100) Mean Corpuscular Hemoglobin 29.7pg (27.0-35.0) Mean Corpuscular Hemoglobin Concent 33.7% (32.0-37.0) Red Cell Distribution Width 13.2% (12.3-15.4) Platelet Count 193bil/L (150-400) Neutrophils (%) (Auto) 66.1% (40-74) Lymphocytes (%) (Auto) 23.3% (14-46) Monocytes (%) (Auto) 8.2% (4-12) Eosinophils (%) (Auto) 1.9% (0-5) Basophils (%) (Auto) 0.4% (0-3) Sodium Level 139mEq/L (134-144) Potassium Level 4.1mEq/L (3.5-5.2) Chloride Level 103mEq/L (97-108) Carbon Dioxide Level 24mmol/L (18-29) Blood Urea Nitrogen 15mg/dL (8-27) Creatinine 0.69mg/dL (0.57-1.00) Estimat Glomerular Filtration Rate 119mL/min (>59) Glucose Level 92mg/dL (60-99) Calcium Level 9.3mg/dL (8.5-10.1) Magnesium Level 2.0mg/dL (1.6-2.6) Total Bilirubin 0.5mg/dL (0.0-1.2) Aspartate Amino Transf (AST/SGOT) 20U/L (0-50) Alanine Aminotransferase (ALT/SGPT) 17U/L (0-32) Alkaline Phosphatase 65U/L (25-165) Total Protein 6.9g/dL (6.4-8.4) Albumin 4.3g/dL (3.4-5.0) Hold Nicholas Top Tube Received (Received) Hold Red Top Tube Received (Received) Hold Porcupine Top Tube Received (Received) ECG Interpretation ECG Interpretation: Sinus rate [address],T changes T wave inversions in V3, AVF unchanged from old Time: 12:34 Interpreted by: ED physician X-Ray Chest Interpretation Chest Xray Interpretation: IMPRESSION: No acute disease. Dictated by: Ray Richmond M.D. on 07/08/2017 at 12:15 Approved by: Ray Richmond M.D. on 07/08/2017 at 12:16 View: Portable, 1 view Interpretation / Wet Read by: Interpret - Radiologist Re-Eval/Medical Decision Med Decision/Clinical Course 76-year-old female history of STEMI with RCA stent placed in November of this year presenting with chest tightness started this morning and lightheadedness for several days. She reports the chest tightness is similar to her STEMI though that event involved her left arm and in her neck. She was sent in by her senior agricultural assistant for admission for stress test. She will be heparinized. First set troponins negative. No EKG changes. Time of Eval: 13:06 Re-Evaluation/Progress Note: Discussed plan for admission. Patient understands and agrees with plan. All questions addressed at this time. Counseled Regarding: Diagnosis, Need for admission Discharge & Departure Primary Impression: Chest pain Chest pain type: unspecified Qualified Code: R07.9 - Chest pain, unspecified Disposition: ADMITTED TO HOSPITAL Discharge Condition All VS Reviewed: Yes Condition: Stable Referrals: Michelle Guerra (PCP) Crit Care Except Billable Proc Time Spent: 105-134 minutes Services Performed: Patient management by me, Time spent at bedside, Reviewing test results, Reviewing imaging, Discussing patient care, Documentation in record Critical Care Notes: 130 minutes Scribe Attestation Portions of this note were transcribed by Soy Alicia. Dr. Sahra Reynolds personally performed the history, physical exam and medical decision-making; I reviewed and confirmed the accuracy of the information in the transcribed note. Signed by: Mindy Rust, 07/08/17 copies to: Michelle Guerra Ben M MD Jul 08, 2017 12:33 SOY ALICIA Jul 08, 2017 12:42 Scribe Attestation Portions of this note were transcribed by Soy Alicia. Dr. Sahra Reynolds personally performed the history, physical exam and medical decision-making; I reviewed and confirmed the accuracy of the information in the transcribed note. Signed by: Mindy Rust, 07/08/17 copies to: Michelle Guerra Ben M MD Jul 08, 2017 12:33 SOY ALICIA Jul 08, 2017 12:42
[2017-07-08 13:15] LABS: BASOPHILS % (AUTO) 0.4 % (0-3); EOSINOPHILS % (AUTO) 1.9 % (0-5); MONOCYTES % (AUTO) 8.2 % (4-12); Mean Corpuscular Hemoglobin 29.7 pg (27.0-35.0); Mean Corpuscular Volume 88.3 fL (81-100); NEUTROPHILS % (AUTO) 66.1 % (40-74); Platelet Count 193 bil/L (150-400)
--- NOTE | 2017-07-08 13:18 | DRSVH ---
PROCEDURE: X-RAY CHEST ONE VIEW, PORTABLE ([id number]) INDICATIONS: cp TECHNIQUE: One view of the chest was acquired. COMPARISON: [facility], CR, XR CHEST 1VW (PORTABLE), 12/17/2016, 13:27. FINDINGS: Surgical changes and devices: None. Lungs and pleura: No pleural effusions or pneumothorax. Lungs are clear. Mediastinum: Mediastinal contours appear normal. Heart size is normal. Bones and chest wall: No suspicious bony lesions. Overlying soft tissues appear unremarkable. IMPRESSION: No acute disease. Dictated by: Ray Richmond M.D. on 07/08/2017 at 12:15 Approved by: Ray Richmond M.D. on 07/08/2017 at 12:16
[2017-07-08 13:35] LABS: TROPONIN T < 0.010 ug/L (0.0-0.011)
[2017-07-08] MEDS ORDERED: PANT40TA3 PO (14:11)
[2017-07-08] MEDS ORDERED: LOSA25TA21 PO (14:11)
[2017-07-08] MEDS ORDERED: SERT25TA6 PO (14:11)
[2017-07-08] MEDS ORDERED: METO25TA6 PO (14:13)
[2017-07-08] MEDS ORDERED: Heparin 25K Unit/500mL 0.45 NS 25,000 UNIT in IV Premix 1 EACH IV ONE ×2 (14:20→14:40)
[2017-07-08] MEDS ORDERED: Heparin 5,000 Unit/mL Inj IVPUSH ONE ×2 (14:20→14:40)
[2017-07-08 14:54] VITALS: BP 115/61; PULSE 64; RESP 17; O2SAT 98
[2017-07-08] MEDS ORDERED: Ondansetron 2 mg/mL 2 mL Inj IVPUSH PRN (15:05)
--- NOTE | 2017-07-08 16:26 | NUR ---
Admit Pt admitted to [facility] room 3004 from ED, report received from Tawny Farris. Pt arrived via stretcher, and was able to ambulate to the bed on own after obtaining weight. Pt alert and oriented x 4, IV with heparin drip running at 16 units/hr on cardiac protocol. No s/sx of bleeding, denies chest pain currently. Pt oriented to room, call light, bed and bathroom. Admit completed, and ligia murray MD notified of pt's arrival.
[2017-07-08 16:30] VITALS: BP 127/64; PULSE 18; PULSE 57; PULSE 58; O2SAT 100
--- NOTE | 2017-07-08 16:48 | PCM.HPMED ---
Subjective Date of Service Jul 08, 2017 Primary Provider: Admitting Physician: Kathleen Brody MD Primary Care Physician: Michelle Guerra Attending Physician: Kathleen Brody MD Chief Complaint: Chest tightness, lightheadedness History of Present Illness: 76-year-old female with history of STEMI in , 100% occlusion of the RCA, s /p 2 CINDY on DAPT, HLD, proxysmal afib, GERD, hiatal hernia p/w intermittent lightheadedness, chest tightness. Patient was usual state of health until 5 days ago, patient had a lot of stress from her work these days. Noticed that she had skipped beats associated with lightheadedness, it was not positional, patient did not have any loss of consciousness. But this symptom was on and off for the past 5 days, patient called yesterday to Dr. Grijalva's office, schedule for visit today, pt this morning prior to visit , pt started having midsternal chest pain, non- radiating, constant 4-6/10, associated with skipped beats and lightheadedness she had earlier, EKG was done and sent her to ED ED VS 126/65, lalitha 50-60s, pt admitted taking metoprolol last night(qhs), she didn't take additional med, no recent med changes, EKG showed qwaves in inf leads, sinus arrhythmias, Lab showed trop negative. aspirin 324mg, heparin gtt started During interview, pt was pleasant but stated she still has tightness up to 5hours so far, it was almost resolved to 2/10 in ED but now back to 4/10, also intermittently noticed lightheadedness while sitting, talking on the bed. pt denied n/v, abd pain, denied heartburn. pt has been eating okay, no c/d. no cough, sputum, fever, chills, Review of Systems: Pertinent positives as noted in history of present illness. All other systems were reviewed and are negative Allergies Coded Allergies: erythromycin base (Verified Allergy, Intermediate, Rash, 07/08/17) aminosalicylic acid (Verified Allergy, Unknown, 07/08/17) isoniazid (Verified Allergy, Unknown, 07/08/17) sulfamethoxazole (Verified Allergy, Unknown, 07/08/17) tetracycline (Verified Allergy, Unknown, Rash, 07/08/17) trimethoprim (Verified Allergy, Unknown, 07/08/17) Home Medications Aspirin (Aspirin) 81 Mg Tablet 81 MG PO HS Atorvastatin Calcium (Atorvastatin Calcium) 40 Mg Tablet 40 MG PO HS Clopidogrel (Clopidogrel) 75 Mg Tablet 75 MG PO DAILY Cyclosporine (Restasis) 1 Each Droperette 1 EACH BOTH_EYES BID Estradiol (Estradiol) 0.5 Mg Tablet 0.125 MG ORAL DAILY Losartan Potassium (Losartan Potassium) 25 Mg Tablet 12.5 MG PO HS Metoprolol Tartrate (Metoprolol Tartrate) 25 Mg Tablet 25 MG PO HS Pantoprazole DR (Pantoprazole DR) 40 Mg Tablet.dr 40 MG PO DAILY Sertraline HCl (Sertraline) 25 Mg Tablet 25 MG PO HS PMH PMH STEMI Hyperlipidemia Intermittent atrial fibrillation Esophageal reflux with hiatal hernia Erosive gastropathy with chronic inflammation on EGD March 2008, last EGD in August 2016 normal Irritable bowel syndrome with constipation Hyperlipidemia Chronic sinusitis Lumbar herniated disc Postural vertigo Childhood tuberculosis Fibromyalgia Depression Surgical History Right ovary removal 1983 Hysterectomy 1990 Cholecystectomy 1999 Sinus surgery 1999 Family History Mother from lymphoma Father had CVA and CAD Social History Hx Alcohol Use: Yes (occasional) Hx Substance Use: No Hx Tobacco Use: No Smoking Status: Never Smoker Exam Vital Signs Vital Sign - Last Date Time Temp Pulse Resp B/P Pulse Ox O2 Delivery O2 Flow Rate FiO2 07/08/17 14:54 64 17 115/61 98 Room Air 07/08/17 12:22 36.6 Exam NAD, comfortably laying down on the bed no JVD, MMM, no LAD RRR, nl s1, s2 no mrg, chest pain not reproducible CTAB, no w,c S,ND,NT,normoactive BS+ warm, no edema, pulses 2/2 Lab and Diagnostics Result Diagram: 07/08/17 1308 07/08/17 1308 X-Rays, CTs and MRIs PROCEDURE: X-RAY CHEST ONE VIEW, PORTABLE ([id number]) INDICATIONS: cp TECHNIQUE: One view of the chest was acquired. COMPARISON: [facility], CR, XR CHEST 1VW (PORTABLE), 12/17/2016, 13: 27. FINDINGS: Surgical changes and devices: None. Lungs and pleura: No pleural effusions or pneumothorax. Lungs are clear. Mediastinum: Mediastinal contours appear normal. Heart size is normal. Bones and chest wall: No suspicious bony lesions. Overlying soft tissues appear unremarkable. IMPRESSION: No acute disease. Dictated by: Ray Richmond M.D. on 07/08/2017 at 12:15 Approved by: Ray Richmond M.D. on 07/08/2017 at 12:16 Assessment & Plan Acute, active probable symptomatic bradycardia, POA, in the setting of previous inf fall STEMI , possible unstable angina, EKG no st/t chg, first trop neg, unlikely gastric origin based on hx -telemetry -briefly discussed case with , asked to consult tomorrow AM since this isn't emergent case, appreciate input tomorrow AM -trends troponin x2 -ordered NM stress test exercise for tomorrow, consider cancel it if any evidence of ACS -nitro for active chest pain, -resume DAPT, BB, statin, h Chronic, stable Hyperlipidemia. resume statin Intermittent atrial fibrillation, likely proxysmal, continue on telemetry Esophageal reflux with hiatal hernia, continue PPI Erosive gastropathy with chronic inflammation on EGD March 2008, last EGD in August 2016 normal Irritable bowel syndrome with constipation Chronic sinusitis Lumbar herniated disc Postural vertigom Childhood tuberculosis Fibromyalgia Depression dispo:Patient will be admitted with observation status with expectation of less than 2 midnights diet:cardiac, NPO after MN for stress test dvt ppx:systemic AC Full code Time spent 65 minutes Kathleen Brody MD Jul 08, 2017 15:57
--- NOTE | 2017-07-08 17:39 | DRSVH ---
PROCEDURE: CT BRAIN WITHOUT CONTRAST ([id number]) INDICATIONS: lightheadedness on DAPT TECHNIQUE: Noncontrast 4.5 mm thick angled axial sections acquired from the foramen magnum to the vertex, with c oronal reformats. COMPARISON: None. FINDINGS: Image quality: Excellent. CSF spaces: Basal cisterns are patent. No extra-axial fluid collections. Ventricles are normal in size and shape. Brain: No midline shift. No intracranial masses or hemorrhage. Brown-white matter interface is norm al. Skull and face: Calvarium and visualized facial bones are intact, without suspicious lesions. Sinuses: Visualized sinuses and mastoids are clear. IMPRESSION: Excellent appearance of the brain, no sign of ischemic injury or microvascular atheroscle rotic change. Source of current symptoms is not seen. Dictated by: Yonis Diaz M.D. on 07/08/2017 at 17:37 Approved by: Yonis Diaz M.D. on 07/08/2017 at 17:37
[2017-07-08 20:09] VITALS: BP 121/52; PULSE 70; O2SAT 100
--- NOTE | 2017-07-08 21:09 | NUR ---
heparin infusion Dr Walton notified of PTT 169. (heparin stopped as per protocol) patient chest pain free. per Dr Walton cardiac heparin infusion discontinued. notified patient. Addendum: 07/08/17 at 2113 by WILDER RODARTE RN per alessia Jones to cancel all PTTs. notified community development planner.
[2017-07-08] MEDS: CYCLOSPORINE BOTH_EYES SCH (21:35)
[2017-07-09 00:18] VITALS: BP 97/58; PULSE 68; O2SAT 99
[2017-07-09 05:33] VITALS: BP 99/58; PULSE 58; RESP 16; O2SAT 97
[2017-07-09 05:48] VITALS: PULSE 55
--- NOTE | 2017-07-09 06:20 | NUR ---
sleep patient slept well. npo for lexiscan this morning. no questions at this time.
[2017-07-09 08:00] VITALS: PULSE 57
[2017-07-09] MEDS: CYCLOSPORINE BOTH_EYES SCH (08:13)
[2017-07-09] MEDS ORDERED: Pantoprazole 40 mg ER24 Tablet PO SCH (08:30)
[2017-07-09 09:52] VITALS: BP 101/59; PULSE 58; RESP 18; O2SAT 99
--- NOTE | 2017-07-09 12:19 | DRSVH ---
[facility] [address] [place] [address] Echocardiogram Report Name: GRUPO AMOS Date: Height: 67 in Hospital Exam Location: [facility] Weight: 141 lb Gender: Female BSA: 1.7 m2 : 1940 Age: 76 yrs BP: 99/58 mmHg Reason For Study: CAD Ordering Physician: Suraj Ibarra Performed By: Jeniffer Zimmer Referring Physician: LYLE Guerra Interpretation Summary The left ventricle is normal in size. The ejection fraction is estimated to be 60-65%. There has been no significant change since the previous study. There is basal inferoseptal wall mild hypokinesis. Compared to the prior exam, the inferior wall motion abnormality is improved. The IVC is of normal diameter and collapses greater than 50% with a sniff. This suggests a low right atrial pressure of 3 mm Hg. Procedure: A two-dimensional transthoracic echocardiogram with color flow and Doppler was performed in limited views only. The study quality was technically adequate. Comparison is made with the echocardiogram of 04/29/2017. The patient was in sinus bradycardia with heart rates between 50-52 bpm during the exam. Left Ventricle: The left ventricle is normal in size. There is normal left ventricular wall thickness. The ejection fraction is estimated to be 60-65%. There has been no significant change since the previous study. There is basal inferoseptal wall mild hypokinesis. Compared to the prior exam, the inferior wall motion abnormality is improved. Great Vessels: The IVC is of normal diameter and collapses greater than 50% with a sniff. This suggests a low right atrial pressure of 3 mm Hg. Pericardium/ Pleura There is no pericardial effusion. There is no pleural effusion. MMode/2D Measurements & Calculations LVIDd: 4.4 cm LV baig. diameter/BSA (cm/m^2): 2.5 LVIDs: 2.5 cm FS: 42.1 % IVSd: 0.73 cm LVPWd: 0.60 cm LV sys. diameter/BSA (cm/m^2): 1.5 Reading Physician:PM
--- NOTE | 2017-07-09 13:50 | CONS ---
[address] [address] CONSULTATION REPORT PATIENT: GRUPO AMOS : 1940 MR#: [id number] ADMIT: 07/08/2017 JOB ID: [id number] CARDIOLOGY CONSULTATION: DATE OF SERVICE: 07/09/2017 REQUESTING PHYSICIAN: Kathleen Brdoy MD REASON FOR CONSULTATION: Dr. Brdoy has asked that I consult on this 76-year-old female admitted with chest discomfort and palpitations. HISTORY: The patient has a longstanding history of reported paroxysmal atrial fibrillation, reportedly back to the age of 37, with chronic complaints of palpitations although a Holter in 2012 showed only sinus rhythm with brief runs of SVT but no atrial fibrillation. She has also had a history of vertigo and fibromyalgia and has been followed by Dr. Grijalva because of complaints of exertional dyspnea, with an echocardiogram in 2012 that showed normal left ventricular size and function with normal exercise myocardial perfusion study, demonstrating excellent exercise capacity without ischemia. Her palpitations were felt to be secondary to brief SVT and she was offered beta blockade although declined. She continued to complain of progressive exertional dyspnea and had a normal stress echocardiogram in February 2015 with PFTs that suggested a mild obstructive and restrictive pattern with a diffusion capacity of around 64% and a pulmonary evaluation was recommended. She was doing well from a heart standpoint until November 2016, when she was admitted with chest discomfort with subtle inferior ST elevation, and an echocardiogram suggested inferior hypokinesis with an EF around 45% with right ventricular hypokinesis. She had positive troponins and underwent cardiac catheterization which revealed only mild disease in the LAD and left circumflex with complete occlusion of the proximal RCA although with significant collateralization from the LAD. Her RCA was treated with two drug-eluting stents. She was discharged to return several days later with complaints of atypical chest discomfort but normal troponins and no ECG changes and was discharged. She last saw Dr. Grijalva on June 04, 2017 and was doing well with an echocardiogram from April that showed normal left and right ventricular size and function, although with an inferior and apical wall motion abnormality. PAP was felt to be normal and her lisinopril was replaced with losartan because of a cough. She subsequently did fairly well until around one week ago, when, during a particularly stressful period, she noted increased palpitations which she describes as an isolated skipped beat without any sustained or rapid palpitations but was associated with significant lightheadedness with slight sense of presyncope although this was more positional than paroxysmal. On the basis of this, she was seen in the clinic urgently yesterday morning when she was evaluated and now complained of a lower chest tightness which she states that she has had intermittently since her NH. ECG in the clinic suggested ventricular bigeminy but no significant ST-segment abnormalities, but because of her symptoms she was transferred to the ED. There, her ECG was benign and her troponins were normal but she continued to complain of chest tightness and therefore was admitted. She states that her chest tightness was rather significant for around 4 hours yesterday and subsequently improved although she continues to have very slight residual discomfort. There is no associated dyspnea or pleuritic component. She has had no nausea or diaphoresis with this. Over the past week, she has not noted any clear association with exertion and has been at cardiac rehab using a treadmill without any provocation of chest discomfort. She has not checked her blood pressures at home but she states that they have always been "low." CARDIAC RISK FACTORS: Notable for hyperlipidemia but no history for any hypertension, diabetes, or tobacco use. Her father had some type of coronary artery disease but of a stroke at age 84. PAST MEDICAL HISTORY: Only notable for a history of GERD, fibromyalgia, vertigo, and remote history of tuberculosis at age 20. She also had some previous depression, particularly following her NH. MEDICATIONS: Home medications: Aspirin 81 mg daily, clopidogrel 75 mg daily which she states that she has been compliant with, atorvastatin 40 mg daily, losartan 12.5 mg q.h.s., metoprolol tartrate 12.5 mg daily, sertraline 50 mg daily, pantoprazole 40 mg daily, fish oil 1000 mg b.i.d., estradiol 0.5 mg daily. ALLERGIES: As noted in the medical record. FAMILY HISTORY: As above but otherwise unremarkable. SOCIAL HISTORY: The patient lives with her in [place]. She has 1-2 alcoholic beverages per week. She has never smoked. REVIEW OF SYSTEMS: A complete review is performed and is notable for the absence of any recent fevers or chills or weight loss. She denies any vision change. She does complain of occasional food sticking that provokes cough with associated dyspnea but otherwise she denies any dyspnea and has had no hemoptysis. No history of any peptic ulcer disease or GI blood loss. Denies any genitourinary complaints. No recent musculoskeletal complaints and denies any history of any neurologic issues. No history of any thyroid or bleeding disorder. She denies any current anxiety or depression. PHYSICAL EXAMINATION: Pleasant, healthy appearing, elderly female, in no distress. HR 55, BP 99/58, O2 saturation 97% on room air. Weight is 64 kg. Skin: Warm and dry. HEENT: EOMI without arcus. She has fairly good dentition. Lungs: Clear bilaterally to auscultation and percussion. CV: Nonpalpable PMI with a regular rate and rhythm with a normal S1 and S2 without any appreciable murmurs or gallops. There is no JVD. Carotid and femoral pulses are 2+ bilaterally with a normal upstroke. No bruit. Dorsalis pedis pulses are 2+ bilaterally and posterior tibial pulses nonpalpable on the right and 1+ on the left. Chest: Palpation to the lower chest provokes significant tenderness although she states this is different from her presenting discomfort. Abdomen: Soft, nondistended, nontender without any palpable masses or organomegaly. Normal bowel tones are present without bruits. Extremities: Warm without any clubbing, cyanosis, or edema. Neuro: Moves all four extremities. Psych: Awake, alert, and oriented. LABORATORY DATA: White count was 6.9 with hematocrit of 39%. Potassium is 4.1 with a BUN of 15 and a creatinine of 0.7. Magnesium was 2.0. LFTs were normal. Serial troponins have been normal. IMAGING: Chest x-ray: No acute disease. Head CT: No obvious abnormalities. DIAGNOSTIC DATA: ECG: Shows sinus arrhythmia with occasional PVCs with evidence of an old inferior infarct but no acute ST-segment changes. IMPRESSION: 1. Atypical chest discomfort. My suspicion is low that his reflects an acute coronary syndrome given the prolonged duration of her discomfort with negative troponins and no objective evidence of ischemia by ECG. This could be reflective of some type of esophageal issue given her mild dysphasia or could represent a chest wall issue given her sternal tenderness. Yet, with her known coronary disease and her anxiety around her diagnosis, I think proceeding with a stress test is reasonable, and as long as this shows no concerning ischemia, then I do not believe that any further ischemic evaluation is needed. 2. Palpitations with lightheadedness. Telemetry here has shown no significant arrhythmias with only occasional premature ventricular contractions. Her lightheadedness does not appear to be coincident with the palpitations and it would be unusual for premature ventricular contractions to provoke this. I suspect that her lightheadedness is more associated with her chronically low blood pressures and I think stopping her losartan may help ameliorate this. In regards to the premature ventricular contractions, I would check a TSH to ensure that her thyroid function is within normal limits, but would not pursue any further evaluation, although as an outpatient she can receive a Zio patch with followup with Dr. Grijalva to try to correlate symptoms with her heart rate and rhythm. She may benefit from changing her metoprolol tartrate to metoprolol succinate for smoother blood levels and I would ensure that her potassium stays greater than 4 and her magnesium greater than 2. I have asked her to check her blood pressures at home when she feels lightheaded and to document her blood pressures and to stay well-hydrated. 3. Hyperlipidemia. No recent data but her LDL should be kept below 70. I would continue with her current dose of atorvastatin. 4. History of tuberculosis. 5. Mild dysphagia. Gastrointestinal evaluation may be appropriate but I will defer this to the hospitalist consideration which can likely be done as an outpatient. PLAN: 1. Discontinue losartan and change metoprolol to metoprolol succinate. Her heparin can be discontinued. 2. Proceed with stress testing. As long as this shows no concerning ischemia then I think she can be discharged with followup with Dr. Grijalva with a 7-14 day Zio patch monitor as an outpatient. 3. Check a TSH and make sure that the potassium and magnesium stay well repleted. 4. Consider further evaluation of her dysphagia and possible aspiration. This is deferred to the hospitalist. I will not plan on seeing her back in followup unless there is some distinct abnormality identified on her stress test. TIME SPENT: I spent 1 hour and 35 minutes reviewing the patient's medical record, examining the patient, and answering her questions.
--- NOTE | 2017-07-09 13:53 | NUR ---
Case Management: JANG given and explained to Pt's Ambrocio. Bonnie SALDIVAR, RN
[2017-07-09] MEDS ORDERED: MeTOProlol XL 25 mg ER24 Tablet PO ONE (14:00)
[2017-07-09] MEDS ORDERED: METO-386 PO (14:31)
--- NOTE | 2017-07-09 14:35 | PCM.DIMED ---
Discharge Instructions Date of Service Jul 09, 2017 Dates of Hospitalization Jul 08, 2017 at 15:14 Discharge Diagnosis Discharge Diagnosis acute dx Atypical chest pain, likely related to anxiety, stress lightheadedness, due to low blood pressure, likely medication-induced Chronic dx Hyperlipidemia. proxysmal, atrial fibrillation, CAD hx of STEMI in Esophageal reflux with hiatal hernia Erosive gastropathy with chronic inflammation on EGD March 2008, last EGD in August 2016 normal Irritable bowel syndrome with constipation Chronic sinusitis Lumbar herniated disc Postural vertigom Childhood tuberculosis Fibromyalgia Depression Medication Instructions Additional med instructions Please note that your blood pressure medicine was changed. Take metoprolol 25mg XR daily, stop taking Losartan Diet Discharge Diet: Low fat, Low Sodium, Heart Healthy Activity Discharge Activity: No restrictions Call your provider Call your provider for: Shortness of breath, Chest pain Patient Instructions Patient Instructions You were hospitalized with lightheadedness and chest pressure, concerning for heart attack given your hx of heart disease. You underwent stress test, test result came back negative. Please follow up with [facility] as scheduled. Follow-up Provider: Favio Benites MD Follow-up with PCP in: 2 weeks Kathleen Brody MD Jul 09, 2017 14:35
[2017-07-09 14:49] VITALS: BP 109/63; PULSE 60; RESP 18; O2SAT 99
--- NOTE | 2017-07-09 16:25 | NUR ---
Discharge Patient given discharge orders. Patient IV removed fully intact and asymptomatic. Patient given medication list with written and verbal instructions when next dose due. Patient given follow up instructions. Patient assisted to main entrance in wheelchair to meet for transportation.
--- NOTE | 2017-07-09 16:48 | DRSVH ---
PROCEDURE: ONE DAY TREADMILL STRESS TEST. Rest and exercise myocardial perfusion SPECT with gated i maging and ejection fraction RADIOPHARMACEUTICAL: 8.0 mCi of Tc-99m tetrofosmin IV at rest and 26.1 mCi of Tc-99m tetrofosmin IV at peak exercise. [id number] was performed. INDICATIONS: HISTORY OF ST ELEVATION MYOCARDIAL INFARCTION AND CHEST PAIN. TECHNIQUE: Radiopharmaceutical was injected at peak stress test, and also at rest. SPECT images wer e obtained. SPECT myocardial perfusion images were displayed in short axis, horizontal long axis, an d vertical long axis views. Gated images were reviewed using [employer] software. COMPARISON: None. CARDIAC STRESS: A standard Avi treadmill exercise tolerance test was performed by the patient unde r the supervision of the attending staff. The patient exercised for 7 minutes and 59 seconds; functi onal aerobic impairment (BAR) is -40%. Hemodynamic Data: There is normal blood pressure and heart rate response to exercise stress. The pa tient achieved 90% of maximum predicted heart rate at peak exercise. Symptoms: The patient has baseline chest discomfort which increased with exercise and the patient webb s chest wall tenderness. EKG: Baseline rhythm was sinus with intermittent PVCs. During exercise, the PVCs were suppressed. No obvious inducible ischemic changes were seen. The patient has some baseline flattening of the ST s egment and nonspecific T-wave changes. There is an old Q-wave in the inferior leads. No ventricular tachycardia was seen. No other significant sustained supraventricular arrhythmias were seen. FINDINGS: Raw Data: There appears to be increased subdiaphragmatic activity. Left Ventricular Function: Stress LV ejection fraction was 82%, stress end diastolic volume was 52 m L. No my visual inspection, no obvious transient ischemic dilatation was seen. Myocardial Perfusion: Stress supine, resting supine and stress prone images were compared to each ot her. There is small-size, mildly-decreased perfusion of the inferoapex seen in the stress supine and resting supine images, which partially improved during prone images. I do not see any obvious rever sible ischemia. IMPRESSION: 1. No obvious reversible ischemia. 2. Stress supine and resting supine images revealed mildly decreased perfusion of the inferoapex, wh ich partially improved during prone images, suggestive of tissue attenuation artifact. That segment is moving well, hence, most likely we are dealing with tissue attenuation artifact. Overall, I will call this study likely a normal myocardial perfusion study. The patient walked on the Avi protocol for 7 minutes and 59 seconds with functional aerobic impairment of -40%. The patient has baseline i solated premature ventricular contraction which became suppressed during exercise. The patient had a typical chest pain prior to and during exercise. Overall, left ventricular function is preserved. H neptali, I will call this study a low-risk myocardial perfusion study. The patient had an exercise stre ss echo in February 2015. At that time she was able to walk for about 8 minutes and 14 seconds, and th ere was no obvious ischemia infarction. Dictated by: Matilda Grijalva M.D. on 07/09/2017 at 15:30 Transcribed by: MICHAEL on 07/09/2017 at 19:47 Approved by: Matilda Grijalva M.D. on 07/09/2017 at 17:11
== END 2017-07-09 16:32 | disposition home or self-care (01) ==
LOC: SED 12:20 → MPC 15:14
PROVIDERS: ADMIT Internal Medicine; ATTEND Internal Medicine
DX: R07.89 Other chest pain (principal); F41.8 Other specified anxiety disorders; R42 Dizziness and giddiness; I10 Essential (primary) hypertension; I48.91 Unspecified atrial fibrillation; I25.10 Atherosclerotic heart disease of native coronary artery without angina pectoris; E78.5 Hyperlipidemia, unspecified; G47.33 Obstructive sleep apnea (adult) (pediatric); K44.9 Diaphragmatic hernia without obstruction or gangrene; I80.9 Phlebitis and thrombophlebitis of unspecified site; M19.90 Unspecified osteoarthritis, unspecified site; K21.9 Gastro-esophageal reflux disease without esophagitis; Z90.710 Acquired absence of both cervix and uterus; Z86.73 Personal history of transient ischemic attack (TIA), and cerebral infarction without residual deficits; Z88.8 Allergy status to other drugs, medicaments and biological substances; Z79.82 Long term (current) use of aspirin; Z86.11 Personal history of tuberculosis; Z79.02 Long term (current) use of antithrombotics/antiplatelets
CPT/HCPCS: 36415; 70450; 71010; 78452; 80048; 80053; 83735; 84443; 84484; 85025; 85730; 93005; 93017; 96374; 99291; 99292; A9502; C8924; G0378; J1644